=== PATIENT | male | born 1970 | race American Indian/Alaskan Native ===

== ENCOUNTER 2017-02-01 09:18 | Inpatient (IN) | payer MEDICAID ==
[2017-01-27 12:25] VITALS: BMI 33.0
[2017-02-01] MEDS ORDERED: Lactated Ringer's 1,000 ML IV ONE (14:35)
[2017-02-01] MEDS: ceFAZolin IV 2 gm in Dextrose 1 GM/50 ML BAG IVPB ONE ×2 (14:40→14:42)
[2017-02-01] MEDS ORDERED: Midazolam 2 MG/2 ML VIAL ONE (14:41)
[2017-02-01] MEDS ORDERED: Propofol 10 mg/ml Inj (20 ML) ONE (14:42)
[2017-02-01] MEDS ORDERED: Bupivacaine HCl 0.25% PF (10 ml) Inj ONE ×2 (15:09)
[2017-02-01] MEDS ORDERED: HYDROmorphone 0.5 mg/0.5 ml ISec IVP PRN (15:46)
[2017-02-01] MEDS ORDERED: HYDROmorphone 0.5 mg/0.5 ml ISec IVP ONE ×2 (16:12→16:55)
[2017-02-01] MEDS ORDERED: Sodium Chloride 0.9% 1,000 ML IV ONE (16:30)
--- NOTE | 2017-02-01 18:12 | OP ---
PROCEDURE DATE: 02/01/2017 PREOPERATIVE DIAGNOSIS: Large midline ventral hernia. POSTOPERATIVE DIAGNOSES: Large midline ventral hernia with multiple adhesions. PROCEDURE PERFORMED: Exploratory laparotomy, primary repair of midline ventral hernia with extensive lysis of adhesions. SURGEON: Lio Squires MD ANESTHESIA: General. ESTIMATED BLOOD LOSS: 30 mL. POSTOPERATIVE CONDITION: Stable. INDICATIONS FOR SURGERY: This is a 46-year-old male with a midline large ventral hernia, who now tin l undergo repair. GROSS FINDINGS: There are multiple adhesions to the hernia site and sac. The hernia sac contained o mentum, but underlying was both small bowel and large bowel. PROCEDURE: The patient taken to the operating room and placed in supine position. General anesthesi a administered and the abdomen was prepped and draped. A midline incision was made. Hernia sac was almost immediately entered. It was dissected free down to its base and the hernia sac was transected at the fascia, releasing all the contacts. There was both bowel and omentum within the hernia sac. This was dissected free and reduced. Extensive adhesions were taken down from the abdomen to clear the fascial edges. This included both small and large bowel, small serosal tears of both were repair ed with silk. A mesenteric blood vessel was repaired with Prolene. Once the fascial edge had been c ompletely cleansed of surrounding adhesions, a primary repair was accomplished using interrupted #1 N ovafil sutures. The wound was irrigated with saline, cleared carefully. There was a large tissue de fect. For this reason, the tissue flaps were raised and a greater than 30 cm adjacent tissue transfe r closure was performed with multiple layers of Vicryl, subcuticular Vicryl and ____ clips. The ziggy ent tolerated procedure well, returned to recovery room in stable condition. Lio Squires MD cc: [id number] TT: 02/01/2017 18:12:09 martin
[2017-02-01] MEDS: Oxycodone/Acetaminophen 5/325 mg Tab PO PRN (19:00)
[2017-02-02] MEDS: Sodium Chloride 0.45% 1,000 ML IV SCH ×3 (04:05→18:46)
[2017-02-02 07:41] LABS: BASO % 0.7 % (0.0-2.0); EOS # 0.4 K/uL (0.0-0.7); EOS % 5.6 % (0.0-4.0); HEMATOCRIT 36.5 % (35.0-51.0); LYMPH % 15.5 % (20.0-40.0); MEAN CELL VOLUME 88.4 fL (80.0-94.0); MEAN CORPUSCULAR HEMOGLOBIN 29.9 pg (27.0-31.0); MEAN CORPUSCULAR HGB CONC 33.8 g/dL (33.0-37.0); MEAN PLATELET VOLUME 8.2 fL (7.2-11.7); MONO # 0.7 K/uL (0.0-0.8); MONO % 10.2 % (0.0-10.0); NRBC % 0.1 % (0.0-2.0); RED CELL DISTRIBUTION WIDTH 14.2 % (11.5-14.5); WHITE BLOOD COUNT 6.5 K/uL (4.8-10.8)
[2017-02-02 08:09] LABS: CHLORIDE 97 mmol/L (98-107); SODIUM 137 mmol/L (132-148)
[2017-02-02 08:10] LABS: POTASSIUM 3.7 mmol/L (3.6-5.2)
[2017-02-02 08:12] LABS: ALB/GLOB RATIO 1.1 (1.0-2.1); ALKALINE PHOSPHATASE 55 U/L (38-126); AST/SGOT 148 U/L (17-59); BILIRUBIN,TOTAL 0.8 mg/dL (0.2-1.3); BLOOD UREA NITROGEN 8 mg/dL (9-20); CARBON DIOXIDE 28 mmol/L (22-30); GFR AFRICAN-AMERICAN > 60; TOTAL PROTEIN 7.4 g/dL (6.3-8.3)
[2017-02-02 08:13] LABS: ALT/SGPT 181 U/L (21-72); CALCIUM 8.5 mg/dl (8.6-10.4); GLUCOSE,RANDOM 143 mg/dL (75-110)
[2017-02-02] MEDS ORDERED: Pneumococcal 23-Valent Vaccine IM ONE (10:00)
[2017-02-02] MEDS: Enoxaparin 40 mg Syringe SC SCH (10:03)
--- NOTE | 2017-02-02 10:05 | CP.PCM.PN ---
Subjective - Date & Time of Evaluation Date of Evaluation: 02/02/17 Time of Evaluation: 08:00 - Subjective Subjective: Medicine consult note- Dr. Masterson's service Patient was seen and examined at bedside. Patient reports a history of diabetes , hypertension, hyperlipidemia, CAD, sleep apnea. Patient is s/p day#1 of ventral hernia repair. Tolerating pain, requesting advancement of diet. No events overnight, per nursing. Objective - Vital Signs/Intake and Output Vital Signs (last 24 hours): Temp Pulse Resp BP Pulse Ox 97.6 F 85 18 118/71 95 02/02/17 09:17 02/02/17 09:17 02/02/17 09:17 02/02/17 09:17 02/02/17 09:17 Intake and Output: 02/02/17 02/02/17 06:59 18:59 Intake Total 720 Output Total 360 Balance 360 - Medications Medications: Current Medications Docusate Sodium (Colace) 100 mg PO BID [facility] Last Admin: 02/02/17 10:01 Dose: 100 mg Enoxaparin Sodium (Lovenox) 40 mg SC DAILY [facility] Sodium Chloride (Sodium Chloride 0.45%) 1,000 mls @ 80 mls/hr IV .[id number] [facility] Last Admin: 02/02/17 04:05 Dose: 80 mls/hr Ketorolac Tromethamine (Toradol) 30 mg IVP Q6 PRN PRN Reason: pain8-10 Stop: 02/06/17 15:30 Last Admin: 02/02/17 10:02 Dose: 30 mg Ondansetron HCl (Zofran Inj) 4 mg IVP Q6 PRN PRN Reason: Nausea/Vomiting Oxycodone/Acetaminophen (Percocet 5/325 Mg Tab) 2 tab PO Q4H PRN PRN Reason: pain1-7 Stop: 02/04/17 15:30 Last Admin: 02/01/17 19:00 Dose: 2 tab Pantoprazole Sodium (Protonix Inj) 40 mg IVP DAILY [facility] Last Admin: 02/02/17 10:01 Dose: 40 mg - Labs Labs: 02/02/17 07:09 02/02/17 07:09 - Constitutional Appears: Non-toxic, No Acute Distress - Head Exam Head Exam: ATRAUMATIC, NORMAL INSPECTION, NORMOCEPHALIC - Eye Exam Pupil Exam: NORMAL ACCOMODATION, PERRL - ENT Exam ENT Exam: Mucous Membranes Moist - Respiratory Exam Respiratory Exam: Clear to Ausculation Bilateral, NORMAL BREATHING PATTERN. absent: Prolonged Expiratory Phase, Rales, Rhonchi, Wheezes - Cardiovascular Exam Cardiovascular Exam: REGULAR RHYTHM, +S1, +S2 - GI/Abdominal Exam GI & Abdominal Exam: Soft, Normal Bowel Sounds. absent: Tenderness, Diminished Bowel Sounds, Hernia, Hypoactive Bowel Sounds Additional comments: abdomen wrapped in binding, tender along midline - Extremities Exam Extremities Exam: Normal Capillary Refill, Normal Inspection - Neurological Exam Neurological Exam: Alert, Awake, Oriented x3 - Psychiatric Exam Psychiatric exam: Normal Affect, Normal Mood - Skin Skin Exam: Dry, Intact, Normal Color, Warm Assessment and Plan - Assessment and Plan (Free Text) Assessment: Ventral Hernia Repair Gen surgery- Dr. Squires s/p ventral hernia repair day #1 Continue clear liquid diet Toradol 30mg IVP Q6h PRN Colace 100mg PO BID Percocet 2 tab PO Q4h PRN Zofran 4mg IVP Q6h PRN IVF NS @ 80cc/hr Hypertension Continue home meds: Lisinopril 40mg PO Daily Metoprolol ER 25mg PO Daily Lasix 20mg PO Daily Diabetes Continue home meds: Metformin 500mg PO BID Prophylactic Measure Protonix 40mg IVP Daily SCDs Lovenox 40mg SC Daily
[2017-02-02] MEDS ORDERED: Albuterol HFA 90 mcg/actuation (8 g) IH PRN (10:32)
[2017-02-02 15:46] VITALS: RESP 20
[2017-02-03] MEDS: Oxycodone/Acetaminophen 5/325 mg Tab PO PRN ×2 (08:23→12:10)
[2017-02-03 09:02] VITALS: TEMP 98; O2SAT 94
[2017-02-03] MEDS ORDERED: Metoprolol Succinate 25 mg XL Tab PO SCH (10:00)
[2017-02-03] MEDS: Enoxaparin 40 mg Syringe SC SCH (10:00)
[2017-02-03 11:24] VITALS: BP 161/82; PULSE 96
== END 2017-02-03 12:30 | disposition home or self-care (01) | DRG 160 ==
LOC: C.SDS 09:18 → C.9S 15:29 → C.5T 19:25
PROVIDERS: ADMIT Surgery; ATTEND Surgery
PROC: 0WQF0ZZ Repair Abdominal Wall, Open Approach (ICD-10-PCS; principal; 2017-02-01 12:15)
DX: K43.9 Ventral hernia without obstruction or gangrene (principal); I10 Essential (primary) hypertension; G47.30 Sleep apnea, unspecified; K66.0 Peritoneal adhesions (postprocedural) (postinfection); I25.10 Atherosclerotic heart disease of native coronary artery without angina pectoris; E78.5 Hyperlipidemia, unspecified; E11.9 Type 2 diabetes mellitus without complications

== ENCOUNTER 2017-03-16 11:10 | Inpatient (IN) | payer MEDICAID ==
[2017-03-16 11:14] VITALS: BMI 31.9
[2017-03-16] MEDS ORDERED: Iohexol 240 (50 ml) PO ONE (11:30)
[2017-03-16] MEDS ORDERED: Iohexol 240 (50 ml) ONE (11:37)
[2017-03-16] MEDS ORDERED: Sodium Chloride 0.9% 1,000 ML ONE (12:04)
[2017-03-16] MEDS ORDERED: Sodium Chloride 0.9% 1,000 ML IV ONE (12:07)
[2017-03-16 12:13] LABS: BASO # 0.1 K/uL (0.0-0.2); EOS # 0.1 K/uL (0.0-0.7); EOS % 1.4 % (0.0-4.0); HEMOGLOBIN 12.7 g/dL (12.0-18.0); LYMPH # 1.2 K/uL (1.0-4.3); LYMPH % 19.1 % (20.0-40.0); MEAN CELL VOLUME 90.1 fL (80.0-94.0); MEAN CORPUSCULAR HEMOGLOBIN 30.5 pg (27.0-31.0); MEAN CORPUSCULAR HGB CONC 33.8 g/dL (33.0-37.0); MEAN PLATELET VOLUME 7.9 fL (7.2-11.7); MONO # 0.6 K/uL (0.0-0.8); MONO % 9.6 % (0.0-10.0); NEUT # 4.3 K/uL (1.8-7.0); NEUT % 68.9 % (50.0-75.0); RBC 4.17 Mil/uL (4.40-5.90); WHITE BLOOD COUNT 6.2 K/uL (4.8-10.8)
[2017-03-16 12:14] LABS: INR 1.1; PROTHROMBIN TIME 12.7 SECONDS (9.7-12.2)
--- NOTE | 2017-03-16 12:23 | C.PDOC ---
History Of Present Illness 47 yr old male presents to the ER s/p ventral hernia repair by Dr. Squires 1 month ago, patient states since then he has had increasing swelling, pain and drainage from the wound. Patient reports he was seen by his PMD for worsening symptoms who sent the patient to ED for further evaluation. Patient denies fever , chest pain, nausea, vomiting, dysuria, incontinence, weakness or numbness. Time Seen by Provider: 03/16/17 11:59 Chief Complaint (Nursing): Abnormal Skin Integrity History Per: Patient History/Exam Limitations: no limitations Onset/Duration Of Symptoms: Days (1 month ) Past Medical History Reviewed: Historical Data, Nursing Documentation, Vital Signs - Medical History PMH: Asthma (HOSPITALIZED-LAST TIME "A LONG TIME AGO"), Colonic Polyps, HTN, Peripheral Edema - [facility] Procedures REPAIR ABDOMINAL WALL, OPEN APPROACH (02/01/17) Family History: States: No Known Family Hx - Social History Hx Alcohol Use: Yes Hx Substance Use: No - Immunization History Hx Tetanus Toxoid Vaccination: No Hx Influenza Vaccination: Yes (2016) Hx Pneumococcal Vaccination: Yes (01/2017) Review Of Systems Except As Marked, All Systems Reviewed And Found Negative. Constitutional: Negative for: Fever Cardiovascular: Negative for: Chest Pain Gastrointestinal: Positive for: Other ((+) Ventral hernia repair with increasing swelling, pain and drainage. ). Negative for: Nausea, Vomiting Genitourinary: Negative for: Dysuria, Incontinence Neurological: Negative for: Weakness, Numbness Physical Exam - Physical Exam Appears: Non-toxic, No Acute Distress Skin: Warm, Dry, No Rash Head: Atraumatic, Normacephalic Oral Mucosa: Moist Chest: Symmetrical, No Tenderness Cardiovascular: Rhythm Regular, No Murmur Respiratory: Normal Breath Sounds, No Rales, No Rhonchi, No Wheezing Gastrointestinal/Abdominal: Soft, No Tenderness, No Guarding, No Rebound, Other ((+) 7cm wound above the umbilicus area, with serosanguinous drainage, mild erythema and tenderness.) Extremity: Normal ROM, No Swelling Neurological/Psych: Oriented x3, Normal Speech, Normal Motor ED Course And Treatment - Laboratory Results Result Diagrams: 03/16/17 12:00 03/16/17 12:00 - CT Scan/US CT - Abd & Pelvis Other Rad Studies (CT/US): Read By Radiologist, Radiology Report Reviewed CT/US Interpretation: EXAM: CT Abdomen and Pelvis With Intravenous Contrast. CLINICAL HISTORY: 47 years old, male; Pain; Abdominal pain; Epigastric; Additional info: Wound infection abdominal wall. TECHNIQUE: Axial computed tomography images of the abdomen and pelvis with intravenous contrast. This CT. exam was performed using one or more of the following dose reduction techniques: automated. exposure control, adjustment of the mA and/or kV according to patient size, and/or use of iterative. reconstruction technique. CONTRAST: 75 mL of visipaque administered intravenously. COMPARISON: No relevant prior studies available. FINDINGS: Lower thorax: No infiltrate at the lung bases. ABDOMEN: Liver: Fatty liver. Hepatic fatty sparing around the gallbladder fossa. Gallbladder and bile ducts: Nondistended gallbladder. No calcified stones. No ductal dilation. Pancreas: Unremarkable. No mass. No ductal dilation. Spleen: Unremarkable. No splenomegaly. Adrenals: Unremarkable. No mass. Kidneys and ureters: Unremarkable. No solid mass. No hydronephrosis. Stomach and bowel: There is no bowel obstruction or free intraperitoneal air. Appendix: Normal appendix. PELVIS: Bladder: Unremarkable. No mass. Reproductive: Unremarkable as visualized. ABDOMEN and PELVIS: Intraperitoneal space: Unremarkable. No free air. No significant fluid collection. Bones/joints: Degenerative change. No acute fracture. No dislocation. Soft tissues: Nonspecific subcutaneous fat stranding inferior to the umbilicus. Skin thickening. No. abscess. Vasculature: Unremarkable. No abdominal aortic aneurysm. Lymph nodes: Few subcentimeter lymph nodes in inguinal region bilaterally. IMPRESSION: Nonspecific subcutaneous fat stranding inferior to the umbilicus, possibly due to cellulitis. Skin. thickening. No abscess. Medical Decision Making Medical Decision Making: PLAN: * CT - Abd & Pelvis * CBC * CMP * Urinalysis * Benadryl IVP * Morphine IVP * Zofran IVP * Sodium Chloride IV The case was discussed with Dr. Squires who agrees to consult on the patient and requests for the patient to be admitted to the hospitalist. The case was discussed with Dr. Marcial (hospitalist oncall) who agrees to admit the patient to his service. Disposition - Disposition Disposition: HOSPITALIZED Disposition Time: 17:30 Condition: GOOD - Clinical Impression Clinical Impression: Cellulitis - PA / [employer] PL[employer]NER / Resident Statement MD/DO has reviewed & agrees with the documentation as recorded. - Scribe Statement The provider has reviewed the documentation as recorded by the Scribsultana Dowling All medical record entries made by the Flory were at my direction and personally dictated by me. I have reviewed the chart and agree that the record accurately reflects my personal performance of the history, physical exam, medical decision making, and the department course for this patient. I have also personally directed, reviewed, and agree with the discharge instructions and disposition.
[2017-03-16 12:27] LABS: AST/SGOT 127 U/L (17-59); GFR AFRICAN-AMERICAN > 60; GFR NON-AFRICAN AMERICAN > 60
[2017-03-16] MEDS ORDERED: Morphine 4 MG/ML VIAL ONE (12:27)
[2017-03-16 12:28] LABS: ALT/SGPT 217 U/L (21-72); BLOOD UREA NITROGEN 9 mg/dL (9-20); CALCIUM 9.5 mg/dl (8.6-10.4)
[2017-03-16 13:51] LABS: URINE BILIRUBIN NEGATIVE (NEGATIVE); URINE BLOOD NEGATIVE (NEGATIVE); URINE CLARITY Clear (Clear); URINE COLOR Straw (YELLOW); URINE GLUCOSE (UA) NORMAL (Normal); URINE LEUKOCYTE ESTERASE NEG Leu/uL (Negative); URINE NITRATE NEGATIVE (NEGATIVE); URINE PROTEIN NEGATIVE (NEGATIVE); URINE UROBILINOGEN NORMAL mg/dL (0.2-1.0)
[2017-03-16] MEDS ORDERED: DiphenhydrAMINE 50 mg/ml Inj IVP STA (14:19)
[2017-03-16] MEDS ORDERED: Iodixanol 320 MG/ML 100 ML BOTTLE IV ONE (14:29)
[2017-03-16] MEDS ORDERED: DiphenhydrAMINE 50 mg/ml Inj ONE (14:32)
[2017-03-16] MEDS ORDERED: Piperacillin/Tazobact 3.375 gm 100 ML IV STA (16:48)
[2017-03-16] MEDS ORDERED: Vancomycin 1 GM 1 GM/250 ML BAG IV SCH (17:00)
[2017-03-16] MEDS ORDERED: Vancomycin 1 GM 1 GM/250 ML BAG IVPB ONE (17:20)
[2017-03-16] MEDS ORDERED: Piperacillin/Tazobact 3.375 gm 100 ML IVPB ONE (17:21)
[2017-03-16] MEDS ORDERED: Albuterol HFA 90 mcg/actuation (8 g) IH PRN ×2 (20:28→21:30)
[2017-03-16] MEDS ORDERED: Oxycodone/Acetaminophen 5/325 mg Tab ONE (20:37)
[2017-03-16] MEDS: Oxycodone/Acetaminophen 5/325 mg Tab PO PRN (20:39)
[2017-03-16] MEDS ORDERED: Potassium Chloride 20 mEq ER Tab PO STA (22:16)
[2017-03-17 07:27] LABS: BASO % 0.5 % (0.0-2.0); EOS # 0.1 K/uL (0.0-0.7); EOS % 2.8 % (0.0-4.0); HEMOGLOBIN 13.2 g/dL (12.0-18.0); LYMPH # 0.7 K/uL (1.0-4.3); LYMPH % 13.2 % (20.0-40.0); MEAN CELL VOLUME 90.7 fL (80.0-94.0); MEAN CORPUSCULAR HEMOGLOBIN 30.5 pg (27.0-31.0); MEAN CORPUSCULAR HGB CONC 33.7 g/dL (33.0-37.0); MEAN PLATELET VOLUME 8.3 fL (7.2-11.7); MONO # 0.3 K/uL (0.0-0.8); MONO % 5.9 % (0.0-10.0); NEUT # 4.2 K/uL (1.8-7.0); NEUT % 77.6 % (50.0-75.0); NRBC % 0.1 % (0.0-2.0); RBC 4.31 Mil/uL (4.40-5.90); RED CELL DISTRIBUTION WIDTH 15.1 % (11.5-14.5); WHITE BLOOD COUNT 5.4 K/uL (4.8-10.8)
[2017-03-17 07:34] LABS: INR 1.1; PROTHROMBIN TIME 12.1 SECONDS (9.7-12.2)
--- NOTE | 2017-03-17 07:49 | CP.PCM.PN ---
Subjective - Date & Time of Evaluation Date of Evaluation: 03/17/17 Time of Evaluation: 07:30 - Subjective Subjective: CC: Abdominal pain x 1 week HPI: This 47 year old male with PMHx Asthma, Colonic Polyps, HTN, Peripheral Edema - presents to the ED s/p ventral hernia repair on 02/01/[address] Squires. Patient is c/o increasing swelling, pain and drainage from the wound. He reports having his angel removed in office roughly 2 weeks after the procedure and feeling well at that time. Roughly 1 week ago, he reports to have developed leakage of fluid from the hernia site, progressing to what he believes is "puss." He admits that the redness and tenderness at the site of his incision is also worst over the past week. Patient reports he was seen by his PMD (Dr. Masterson) for worsening symptoms, who sent the patient to ED for further evaluation. Patient denies f/c, change in vision, chest pain, SOB, nausea, vomiting, dysuria, incontinence, weakness or numbness. PMD: Dr. Masterson PMHx: Asthma (previously hospitalized), Colonic Polyps, HTN, Peripheral Edema PSHx: Ventral Hernia repair, Fracture of L arm with hardware placed. Meds: See EMR FamHx: unknown SocHx: 5cig/day for many years, ETOH social, denies drug use. On disability from work. Objective - Vital Signs/Intake and Output Vital Signs (last 24 hours): Temp Pulse Resp BP Pulse Ox 97.3 F L 85 20 151/88 H 96 03/16/17 23:45 03/16/17 23:45 03/16/17 23:45 03/16/17 23:45 03/16/17 23:45 - Medications Medications: Current Medications Albuterol (Ventolin Hfa 90 Mcg/Actuation (8 G)) 2 puff IH RQ4 PRN PRN Reason: Shortness of Breath Aspirin (Ecotrin) 81 mg PO DAILY [facility] Clopidogrel Bisulfate (Plavix) 75 mg PO DAILY [facility] Enoxaparin Sodium (Lovenox) 40 mg SC DAILY [facility] Furosemide (Lasix) 20 mg PO DAILY [facility] Vancomycin HCl (Vancomycin 1gm In Normal Saline Addvantage) 1 gm in 250 mls @ 166.667 mls/hr IV STAT [facility] Last Admin: 03/16/17 18:00 Dose: 166.667 mls/hr Lisinopril (Zestril) 40 mg PO DAILY [facility] Nitroglycerin (Nitrostat Sl Tab) 0.4 mg SL PRN PRN PRN Reason: Other Oxycodone/Acetaminophen (Percocet 5/325 Mg Tab) 1 tab PO Q4H PRN PRN Reason: Pain, severe (8-10) Stop: 03/19/17 20:28 Last Admin: 03/16/17 20:39 Dose: 1 tab - Labs Labs: 03/17/17 07:14 PT 12.1 SECONDS (9.7-12.2) 03/17/17 07:14 INR 1.1 03/17/17 07:14 APTT 38 SECONDS (21-34) H D 03/17/17 07:14 - Additional Findings Additional findings: - Constitutional Appears: Non-toxic, In Acute Distress (due to pain) - Head Exam Head Exam: ATRAUMATIC, NORMAL INSPECTION, NORMOCEPHALIC - Eye Exam Pupil Exam: NORMAL ACCOMODATION, PERRL - ENT Exam ENT Exam: Mucous Membranes Moist - Respiratory Exam Respiratory Exam: Clear to Ausculation Bilateral, NORMAL BREATHING PATTERN. absent: Prolonged Expiratory Phase, Rales, Rhonchi, Wheezes - Cardiovascular Exam Cardiovascular Exam: REGULAR RHYTHM, +S1, +S2 - GI/Abdominal Exam GI & Abdominal Exam: Soft, Normal Bowel Sounds, Tenderness. absent: Diminished Bowel Sounds, Hernia, Hypoactive Bowel Sounds Additional comments: (+) 7cm wound above the umbilicus area, with serosanguinous drainage, mild erythema and tenderness. - Extremities Exam Extremities Exam: Normal Capillary Refill, Normal Inspection - Neurological Exam Neurological Exam: Alert, Awake, Oriented x3 - Psychiatric Exam Psychiatric exam: Normal Affect, Normal Mood - Skin Skin Exam: Dry, Intact, Normal Color, Warm Assessment and Plan - Assessment and Plan (Free Text) Assessment: Cellulitis at Ventral Hernia Repair Site -Ventral hernia repair performed 02/01/[address] Squires -Percocet 5/325 mg PO Q4H -Cefazolin 1Gm IVPB Q8H -negative Urine cult -wound culture (+) staff. -Consult Surgery, Dr. Squires, help appreciated. -Consult ID, Dr. Schuster, help appreciated. Asthma -not in acute exacerbation, however previously hospitalized -albuterol PRN HTN -Nitroglycerin 0.4mg SL PRN -Lisinopril 40mg PO qd -Held Furosemide 20mg PO qd -Held ASA 81mg PO qd CAD -Held Plavix 75mg PO qd -f/u lipid panel -f/u A1c -f/u TSH + fee T4 Diabetes Hold Metformin 500mg PO BID Proph -SCD -Regular diet -Protonix 40mg IVP qd -Held Lovenox 40mg SC daily
[2017-03-17 07:59] LABS: ALBUMIN 3.7 g/dL (3.5-5.0)
[2017-03-17 08:02] LABS: AST/SGOT 88 U/L (17-59); GFR AFRICAN-AMERICAN > 60; GFR NON-AFRICAN AMERICAN > 60
[2017-03-17 08:03] LABS: ALT/SGPT 163 U/L (21-72); BLOOD UREA NITROGEN 7 mg/dL (9-20); CALCIUM 9.4 mg/dl (8.6-10.4)
--- NOTE | 2017-03-17 09:43 | CT ---
PROCEDURE: CT Abdomen and Pelvis with contrast HISTORY: wound infection abdominal wall COMPARISON: None. TECHNIQUE: Contrast dose: 100 mL Visipaque 320 Radiation dose: Total exam DLP = 764.81 mGy-cm. This CT exam was performed using one or more of the following dose reduction techniques: Automated exposure control, adjustment of the mA and/or kV according to patient size, and/or use of iterative reconstruction technique. FINDINGS: LOWER THORAX: Unremarkable. LIVER: Normal size and contour. Diffusely diminished attenuation consistent with fatty infiltration. No mass. No biliary ductal dilatation. GALLBLADDER AND BILE DUCTS: Partially contracted. No calcified stones identified. No mural thickening appreciated. PANCREAS: Unremarkable. No gross lesion or ductal dilatation. SPLEEN: Unremarkable. ADRENALS: Unremarkable. No mass. KIDNEYS AND URETERS: Unremarkable. No hydronephrosis. No solid mass. No renal calculus identified. VASCULATURE: Unremarkable. No aortic aneurysm. BOWEL: Unremarkable. No obstruction. No gross mural thickening. APPENDIX: Normal appendix. PERITONEUM: About the umbilical ligament there is inflammation manifested as streaky increased density in the subcutaneous fat. There is thickening of the skin of the emboli kiss and immediately superior midline skin. This inflammation in the subcutaneous soft tissues about the emboli kiss extends through and posterior to the linea elbow and posterior rectus sheaths. There is a small amount of inflammation seen within the anterior intraperitoneal fat adjacent to the umbilicus. There is no definite abscess identified within the subcutaneous soft tissues about the umbilicus. LYMPH NODES: Unremarkable. No enlarged lymph nodes. BLADDER: Unremarkable. REPRODUCTIVE: Normal prostate BONES: No acute fracture. OTHER FINDINGS: None. IMPRESSION: Cellulitis about the umbilicus with involvement of the subcutaneous fat about the emboli kiss. This infectious process extends through the linea L5 and medial rectus sheaths to involve the intraperitoneal fat anteriorly, adjacent to the anterior abdominal wall. Again, no evidence of abscess. These findings were discussed with SALOMON Nath by telephone at 9:30 a.m. on 03/17/2017.
[2017-03-17 11:33] LABS: MAGNESIUM 1.7 mg/dL (1.6-2.3)
[2017-03-17] MEDS: ceFAZolin 1 GM in Sodium Chloride 0.9% 100 ML IVPB SCH ×2 (11:45→18:02)
[2017-03-17] MEDS: Enoxaparin 40 mg Syringe SC SCH (11:52)
[2017-03-17] MEDS ORDERED: Lactated Ringer's 1,000 ML IV ONE (15:25)
[2017-03-17] MEDS ORDERED: Propofol 10 mg/ml Inj (20 ML) ONE ×2 (15:33→15:54)
[2017-03-17] MEDS ORDERED: Midazolam 2 MG/2 ML VIAL ONE (15:33)
[2017-03-17] MEDS ORDERED: Albuterol-Ipratrop 3 mg / 0.5 (3 ml) UD INH STA (16:22)
[2017-03-17] MEDS ORDERED: HYDROmorphone 0.5 mg/0.5 ml ISec IVP PRN (16:23)
[2017-03-17] MEDS: Oxycodone/Acetaminophen 5/325 mg Tab PO PRN ×2 (17:46→23:48)
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
[2017-03-17] MEDS ORDERED: Vancomycin 1 gm/NS 200 ml 1 GM/200 ML BAG IVPB SCH (19:45)
[2017-03-17] MEDS: Vancomycin 1 gm/NS 200 ml 1 GM/200 ML BAG IVPB SCH (21:34)
[2017-03-18] MEDS: ceFAZolin 1 GM in Sodium Chloride 0.9% 100 ML IVPB SCH ×3 (03:35→19:10)
[2017-03-18 07:37] LABS: BASO # 0.1 K/uL (0.0-0.2); BASO % 0.9 % (0.0-2.0); HEMOGLOBIN 12.4 g/dL (12.0-18.0); LYMPH # 0.7 K/uL (1.0-4.3); LYMPH % 6.1 % (20.0-40.0); MEAN CORPUSCULAR HEMOGLOBIN 30.3 pg (27.0-31.0); MEAN CORPUSCULAR HGB CONC 33.7 g/dL (33.0-37.0); MEAN PLATELET VOLUME 8.3 fL (7.2-11.7); MONO # 0.3 K/uL (0.0-0.8); MONO % 2.9 % (0.0-10.0); NEUT # 9.7 K/uL (1.8-7.0); NEUT % 90.1 % (50.0-75.0); PLATELET COUNT 347 K/uL (130-400); RBC 4.08 Mil/uL (4.40-5.90); RED CELL DISTRIBUTION WIDTH 15.2 % (11.5-14.5); WHITE BLOOD COUNT 10.8 K/uL (4.8-10.8)
[2017-03-18 07:42] LABS: ALBUMIN 3.7 g/dL (3.5-5.0)
[2017-03-18 07:45] LABS: ALT/SGPT 142 U/L (21-72); AST/SGOT 68 U/L (17-59); BLOOD UREA NITROGEN 9 mg/dL (9-20); GFR AFRICAN-AMERICAN > 60; GFR NON-AFRICAN AMERICAN > 60
[2017-03-18 07:46] LABS: CALCIUM 9.9 mg/dl (8.6-10.4); HDL CHOLESTEROL 34 mg/dL (30-70); MAGNESIUM 1.9 mg/dL (1.6-2.3)
[2017-03-18 07:57] LABS: LDL CHOLESTEROL 118 mg/dL (0-129)
[2017-03-18 08:39] LABS: LYMPHOCYTE 6 % (20-40); MONOCYTE 5 % (0-10); NEUTROPHIL 89 % (50-75); PLATELET ESTIMATE NORMAL (NORMAL); TOTAL CELLS COUNTED 100
[2017-03-18] MEDS: Oxycodone/Acetaminophen 5/325 mg Tab PO PRN ×2 (09:05→18:05)
--- NOTE | 2017-03-18 11:06 | CP.PCM.PN ---
Subjective - Date & Time of Evaluation Date of Evaluation: 03/18/17 Time of Evaluation: 07:20 - Subjective Subjective: PGY2 Medicine Note - Dr. Masterson's Service Patient seen and examined at bedside. No acute overnight events per nursing. Patient is POD #1 for I&D of abdominal wall abscess with Dr. Squires, s/p ventral hernia repair on 02/01/17. Admits to mild abdominal pain, well controlled. Denies f/c, chest pain, SOB, n/v, d/c, LE edema, or any additional complaints. Objective - Vital Signs/Intake and Output Vital Signs (last 24 hours): Temp Pulse Resp BP Pulse Ox 97.7 F 84 20 161/84 H 96 03/18/17 08:35 03/18/17 08:35 03/18/17 08:35 03/18/17 08:35 03/18/17 08:35 - Medications Medications: Current Medications Albuterol (Ventolin Hfa 90 Mcg/Actuation (8 G)) 2 puff IH RQ4 PRN PRN Reason: Shortness of Breath Aspirin (Ecotrin) 81 mg PO DAILY [facility] Last Admin: 03/17/17 11:51 Dose: Not Given Clopidogrel Bisulfate (Plavix) 75 mg PO DAILY [facility] Last Admin: 03/17/17 11:52 Dose: Not Given Enoxaparin Sodium (Lovenox) 40 mg SC DAILY [facility] Last Admin: 03/17/17 11:52 Dose: Not Given Furosemide (Lasix) 20 mg PO DAILY [facility] Last Admin: 03/17/17 11:51 Dose: Not Given Cefazolin Sodium 1 gm/ Sodium (Chloride) 100 mls @ 100 mls/hr IVPB Q8H [facility] Last Admin: 03/18/17 10:56 Dose: 100 mls/hr Vancomycin/Sodium Chloride (Vancocin) 1 gm in 200 mls @ 166.7 mls/hr IVPB Q24H [facility] Stop: 03/22/17 22:01 Last Admin: 03/17/17 21:34 Dose: 166.7 mls/hr Lisinopril (Zestril) 40 mg PO DAILY [facility] Last Admin: 03/18/17 10:56 Dose: 40 mg Nitroglycerin (Nitrostat Sl Tab) 0.4 mg SL PRN PRN PRN Reason: Other Oxycodone/Acetaminophen (Percocet 5/325 Mg Tab) 1 tab PO Q4H PRN PRN Reason: Pain, severe (8-10) Stop: 03/19/17 20:28 Last Admin: 03/18/17 09:05 Dose: 1 tab - Labs Labs: 03/18/17 07:03 03/18/17 07:03 PT 12.1 SECONDS (9.7-12.2) 03/17/17 07:14 INR 1.1 03/17/17 07:14 APTT 38 SECONDS (21-34) H D 03/17/17 07:14 - Additional Findings Additional findings: - Constitutional Appears: Non-toxic, In Acute Distress (due to pain) - Head Exam Head Exam: ATRAUMATIC, NORMAL INSPECTION, NORMOCEPHALIC - Eye Exam Pupil Exam: NORMAL ACCOMODATION, PERRL - ENT Exam ENT Exam: Mucous Membranes Moist - Respiratory Exam Respiratory Exam: Clear to Ausculation Bilateral, NORMAL BREATHING PATTERN. absent: Prolonged Expiratory Phase, Rales, Rhonchi, Wheezes - Cardiovascular Exam Cardiovascular Exam: REGULAR RHYTHM, +S1, +S2 - GI/Abdominal Exam GI & Abdominal Exam: Soft, Normal Bowel Sounds, Tenderness (improving). absent : Diminished Bowel Sounds, Hernia, Hypoactive Bowel Sounds Additional comments: current: bandages in place, CDI prior: (+) 7cm wound above the umbilicus area, with serosanguinous drainage, mild erythema and tenderness. - Extremities Exam Extremities Exam: Normal Capillary Refill, Normal Inspection - Neurological Exam Neurological Exam: Alert, Awake, Oriented x3 - Psychiatric Exam Psychiatric exam: Normal Affect, Normal Mood - Skin Skin Exam: Dry, Intact, Normal Color, Warm Assessment and Plan - Assessment and Plan (Free Text) Assessment: Cellulitis at Ventral Hernia Repair Site 03/18: POD #1 for I&D of abdominal wall abscess with Dr. Squires, s/p ventral hernia repair on 02/01/17 -Ventral hernia repair performed 02/01/[address] Squires -Percocet 5/325 mg PO Q4H -Cefazolin 1Gm IVPB Q8H -negative Urine cult -wound culture (+) staff. -Consult Surgery, Dr. Squires, help appreciated. -Consult ID, Dr. Schuster, help appreciated. Asthma -not in acute exacerbation, however previously hospitalized -albuterol PRN HTN -Nitroglycerin 0.4mg SL PRN -Lisinopril 40mg PO qd -Held Furosemide 20mg PO qd -Held ASA 81mg PO qd CAD -Held Plavix 75mg PO qd -lipid panel WNL -A1c 7.1 -TSH + fee T4 WNL Diabetes Hold Metformin 500mg PO BID until 03/19 (IV contrast given 03/17). A1c 7.1 Proph -SCD -Regular diet -Protonix 40mg IVP qd -Held Lovenox 40mg SC daily
[2017-03-18] MEDS ORDERED: Bupivacaine HCl 0.25% PF (10 ml) Inj ONE (12:55)
[2017-03-18] MEDS ORDERED: Lactated Ringer's 1,000 ML IV ONE (14:00)
[2017-03-18] MEDS ORDERED: Midazolam 2 MG/2 ML VIAL ONE (14:00)
[2017-03-18] MEDS ORDERED: Succinylcholine Chloride 20 mg/ml Syr (5 ml) IV ONE (14:00)
[2017-03-18] MEDS ORDERED: Propofol 10 mg/ml Inj (20 ML) ONE (14:00)
[2017-03-18] MEDS ORDERED: Rocuronium 10 mg/ml (5 ml) ONE (14:00)
[2017-03-18] MEDS ORDERED: Neostigmine Methylsulfate 3mg/3ml Syringe IV ONE (14:25)
[2017-03-18] MEDS ORDERED: HYDROmorphone 0.5 mg/0.5 ml ISec IVP PRN (14:55)
[2017-03-18] MEDS ORDERED: Lactated Ringer's 1,000 ML IV SCH (15:00)
[2017-03-18 17:34] VITALS: RESP 20
[2017-03-18] MEDS: Vancomycin 1 gm/NS 200 ml 1 GM/200 ML BAG IVPB SCH (21:21)
[2017-03-19] MEDS: ceFAZolin 1 GM in Sodium Chloride 0.9% 100 ML IVPB SCH ×3 (03:36→20:08)
[2017-03-19] MEDS: Oxycodone/Acetaminophen 5/325 mg Tab PO PRN ×4 (04:21→18:50)
[2017-03-19 08:06] LABS: BASO # 0.1 K/uL (0.0-0.2); BASO % 0.6 % (0.0-2.0); EOS # 0.3 K/uL (0.0-0.7); EOS % 2.6 % (0.0-4.0); HEMOGLOBIN 11.9 g/dL (12.0-18.0); LYMPH # 1.7 K/uL (1.0-4.3); LYMPH % 17.4 % (20.0-40.0); MEAN CELL VOLUME 90.6 fL (80.0-94.0); MEAN CORPUSCULAR HEMOGLOBIN 30.3 pg (27.0-31.0); MEAN CORPUSCULAR HGB CONC 33.4 g/dL (33.0-37.0); MEAN PLATELET VOLUME 8.2 fL (7.2-11.7); MONO # 0.5 K/uL (0.0-0.8); MONO % 5.6 % (0.0-10.0); NEUT # 7.2 K/uL (1.8-7.0); NEUT % 73.8 % (50.0-75.0); RBC 3.93 Mil/uL (4.40-5.90); RED CELL DISTRIBUTION WIDTH 15.3 % (11.5-14.5); WHITE BLOOD COUNT 9.8 K/uL (4.8-10.8)
[2017-03-19 08:21] LABS: ALBUMIN 3.5 g/dL (3.5-5.0)
[2017-03-19 08:24] LABS: AST/SGOT 132 U/L (17-59); BLOOD UREA NITROGEN 12 mg/dL (9-20); GFR AFRICAN-AMERICAN > 60; GFR NON-AFRICAN AMERICAN > 60
[2017-03-19 08:25] LABS: ALT/SGPT 156 U/L (21-72); MAGNESIUM 1.8 mg/dL (1.6-2.3)
[2017-03-19] MEDS ORDERED: Benzocaine/Menthol (Cepacol) Lozenge MT PRN (12:29)
--- NOTE | 2017-03-19 15:47 | CP.PCM.PN ---
Subjective - Date & Time of Evaluation Date of Evaluation: 03/19/17 Time of Evaluation: 09:45 - Subjective Subjective: PGY2 Medicine Note- Dr. Masterson's service Patient seen and examined. Patient states he feels well but has complaint of sore throat since his surgery. Patient also requesting to restart his home medication Advair. Objective - Vital Signs/Intake and Output Vital Signs (last 24 hours): Temp Pulse Resp BP Pulse Ox 98.1 F 92 H 20 132/74 97 03/18/17 23:20 03/18/17 23:20 03/18/17 23:20 03/18/17 23:20 03/18/17 23:20 - Medications Medications: Current Medications Albuterol (Ventolin Hfa 90 Mcg/Actuation (8 G)) 2 puff IH RQ4 PRN PRN Reason: Shortness of Breath Aspirin (Ecotrin) 81 mg PO DAILY [facility] Last Admin: 03/17/17 11:51 Dose: Not Given Benzocaine/Menthol (Cepacol Sore Throat) 1 selena MT Q3H PRN PRN Reason: Sore Throat Last Admin: 03/19/17 14:23 Dose: 1 selena Clopidogrel Bisulfate (Plavix) 75 mg PO DAILY [facility] Last Admin: 03/17/17 11:52 Dose: Not Given Docusate Sodium (Colace) 100 mg PO BID [facility]PLACED BY [facility] Enoxaparin Sodium (Lovenox) 40 mg SC DAILY [facility] Last Admin: 03/17/17 11:52 Dose: Not Given Furosemide (Lasix) 20 mg PO DAILY [facility] Last Admin: 03/17/17 11:51 Dose: Not Given Cefazolin Sodium 1 gm/ Sodium (Chloride) 100 mls @ 100 mls/hr IVPB Q8H [facility]PL[facility] Last Admin: 03/19/17 11:14 Dose: 100 mls/hr Vancomycin/Sodium Chloride (Vancocin) 1 gm in 200 mls @ 166.7 mls/hr IVPB Q24H [facility]PL[facility] Stop: 03/22/17 22:01 Last Admin: 03/18/17 21:21 Dose: 166.7 mls/hr Lactated Ringer's (Lactated Ringer's) 1,000 mls @ 150 mls/hr IV .Q6H40M REPLACED BY [facility] Lisinopril (Zestril) 40 mg PO DAILY [facility] Last Admin: 03/19/17 09:04 Dose: 40 mg Nitroglycerin (Nitrostat Sl Tab) 0.4 mg SL PRN PRN PRN Reason: Other Oxycodone/Acetaminophen (Percocet 5/325 Mg Tab) 1 tab PO Q4H PRN PRN Reason: Pain, severe (8-10) Stop: 03/19/17 20:28 Last Admin: 03/19/17 13:30 Dose: 1 tab Fluticasone/Salmeterol (Advair Diskus 250/50) 1 puff INH RQ12 ADI - Labs Labs: 03/19/17 07:54 03/19/17 07:54 PT 12.1 SECONDS (9.7-12.2) 03/17/17 07:14 INR 1.1 03/17/17 07:14 APTT 38 SECONDS (21-34) H D 03/17/17 07:14 - Constitutional Appears: Non-toxic, No Acute Distress - Head Exam Head Exam: ATRAUMATIC, NORMOCEPHALIC - Eye Exam Eye Exam: EOMI (right eye) - ENT Exam ENT Exam: Mucous Membranes Moist - Respiratory Exam Respiratory Exam: Decreased Breath Sounds, Clear to Ausculation Bilateral. absent: Wheezes - Cardiovascular Exam Cardiovascular Exam: +S1, +S2 - GI/Abdominal Exam GI & Abdominal Exam: Soft, Tenderness (around surgical site), Normal Bowel Sounds Additional comments: surgical site dressed with clean abdominal pads - Extremities Exam Extremities Exam: Normal Inspection. absent: Pedal Edema - Neurological Exam Neurological Exam: Alert, Awake - Psychiatric Exam Psychiatric exam: Normal Affect - Skin Skin Exam: Warm Assessment and Plan - Assessment and Plan (Free Text) Assessment: Cellulitis at Ventral Hernia Repair Site 03/19: POD #2 I&D abdominal wall abscess 03/18: POD #1 for I&D of abdominal wall abscess with Dr. Squires, s/p ventral hernia repair on 02/01/17 -Ventral hernia repair performed 02/01/[address] Squires -Percocet 5/325 mg PO Q4H -Cefazolin 1Gm IVPB Q8H -negative Urine cult -Pathology: fragments fibroadipose tissue with acute and chronic inflammation, fat necrosis and fibrosis -wound culture (+) s. aureus -Consult Surgery, Dr. Squires, help appreciated. -Consult ID, Dr. Schuster, help appreciated. CT Abdomen: cellulitis about the umbilicus with involvement of the subcutaneous fat about the emboli Asthma -not in acute exacerbation, however previously hospitalized -albuterol PRN, home med advair HTN -Nitroglycerin 0.4mg SL PRN -Lisinopril 40mg PO qd -Held Furosemide 20mg PO qd -Held ASA 81mg PO qd CAD -Plavix 75mg PO qd -lipid panel WNL -A1c 7.1 -TSH + fee T4 WNL Diabetes restart metformin 500mg BID 03/20/17 A1c 7.1 Prophylactic measure -SCD -Regular diet -pepcid 20mg daily -Lovenox 40mg SC daily All management per Dr. Masterson
--- NOTE | 2017-03-19 16:44 | CP.PCM.PN ---
Subjective - Date & Time of Evaluation Date of Evaluation: 03/19/17 Time of Evaluation: 07:00 - Subjective Subjective: wound + MSSA clean s/p debridement possible d/c in am on keflex Objective - Vital Signs/Intake and Output Vital Signs (last 24 hours): Temp Pulse Resp BP Pulse Ox 98.1 F 92 H 20 132/74 97 03/18/17 23:20 03/18/17 23:20 03/18/17 23:20 03/18/17 23:20 03/18/17 23:20 Intake and Output: 03/19/17 03/19/17 06:59 18:59 Intake Total 300 Balance 300 - Medications Medications: Current Medications Albuterol (Ventolin Hfa 90 Mcg/Actuation (8 G)) 2 puff IH RQ4 PRN PRN Reason: Shortness of Breath Aspirin (Ecotrin) 81 mg PO DAILY [facility] Last Admin: 03/17/17 11:51 Dose: Not Given Benzocaine/Menthol (Cepacol Sore Throat) 1 selena MT Q3H PRN PRN Reason: Sore Throat Last Admin: 03/19/17 14:23 Dose: 1 selena Clopidogrel Bisulfate (Plavix) 75 mg PO DAILY [facility] Last Admin: 03/17/17 11:52 Dose: Not Given Docusate Sodium (Colace) 100 mg PO BID [facility] Enoxaparin Sodium (Lovenox) 40 mg SC DAILY [facility] Last Admin: 03/17/17 11:52 Dose: Not Given Famotidine (Pepcid) 20 mg PO DAILY [facility] Furosemide (Lasix) 20 mg PO DAILY [facility] Last Admin: 03/17/17 11:51 Dose: Not Given Cefazolin Sodium 1 gm/ Sodium (Chloride) 100 mls @ 100 mls/hr IVPB Q8H [facility] Last Admin: 03/19/17 11:14 Dose: 100 mls/hr Vancomycin/Sodium Chloride (Vancocin) 1 gm in 200 mls @ 166.7 mls/hr IVPB Q24H [facility] Stop: 03/22/17 22:01 Last Admin: 03/18/17 21:21 Dose: 166.7 mls/hr Lactated Ringer's (Lactated Ringer's) 1,000 mls @ 150 mls/hr IV .Q6H40M [facility] Lisinopril (Zestril) 40 mg PO DAILY [facility] Last Admin: 03/19/17 09:04 Dose: 40 mg Metformin HCl (Glucophage) 500 mg PO BID [facility] Nitroglycerin (Nitrostat Sl Tab) 0.4 mg SL PRN PRN PRN Reason: Other Oxycodone/Acetaminophen (Percocet 5/325 Mg Tab) 1 tab PO Q4H PRN PRN Reason: Pain, severe (8-10) Stop: 03/19/17 20:28 Last Admin: 03/19/17 13:30 Dose: 1 tab Fluticasone/Salmeterol (Advair Diskus 250/50) 1 puff INH RQ12 [facility] - Labs Labs: 03/19/17 07:54 03/19/17 07:54 PT 12.1 SECONDS (9.7-12.2) 03/17/17 07:14 INR 1.1 03/17/17 07:14 APTT 38 SECONDS (21-34) H D 03/17/17 07:14 - Constitutional Appears: Non-toxic - Head Exam Head Exam: NORMAL INSPECTION - Eye Exam Eye Exam: PERRL. absent: Scleral icterus - ENT Exam ENT Exam: Mucous Membranes Dry, Normal External Ear Exam - Neck Exam Neck Exam: absent: Lymphadenopathy - Respiratory Exam Respiratory Exam: Decreased Breath Sounds, Clear to Ausculation Bilateral - Cardiovascular Exam Cardiovascular Exam: REGULAR RHYTHM - GI/Abdominal Exam GI & Abdominal Exam: Distended, Soft Assessment and Plan - Assessment and Plan (Free Text) Plan: wound infection mssa improving
[2017-03-19] MEDS: Fluticasone-Salmeterol 250-50mcg Diskus INH SCH (20:33)
[2017-03-20] MEDS: ceFAZolin 1 GM in Sodium Chloride 0.9% 100 ML IVPB SCH ×2 (03:20→13:47)
[2017-03-20 08:08] VITALS: PULSE 86; TEMP 97.5; O2SAT 96
[2017-03-20] MEDS: Fluticasone-Salmeterol 250-50mcg Diskus INH SCH (08:35)
[2017-03-20 09:08] LABS: BASO # 0.1 K/uL (0.0-0.2); EOS # 0.4 K/uL (0.0-0.7); EOS % 5.5 % (0.0-4.0); HEMOGLOBIN 13.2 g/dL (12.0-18.0); LYMPH # 1.4 K/uL (1.0-4.3); MEAN CELL VOLUME 91.4 fL (80.0-94.0); MEAN CORPUSCULAR HEMOGLOBIN 29.7 pg (27.0-31.0); MEAN CORPUSCULAR HGB CONC 32.5 g/dL (33.0-37.0); MEAN PLATELET VOLUME 8.1 fL (7.2-11.7); MONO # 0.8 K/uL (0.0-0.8); MONO % 10.5 % (0.0-10.0); NEUT # 4.6 K/uL (1.8-7.0); RBC 4.44 Mil/uL (4.40-5.90); RED CELL DISTRIBUTION WIDTH 15.3 % (11.5-14.5); WHITE BLOOD COUNT 7.3 K/uL (4.8-10.8)
[2017-03-20 09:18] LABS: ALBUMIN 4.3 g/dL (3.5-5.0)
[2017-03-20 09:21] LABS: ALB/GLOB RATIO 1.1 (1.0-2.1); ALT/SGPT 204 U/L (21-72); AST/SGOT 175 U/L (17-59); BLOOD UREA NITROGEN 10 mg/dL (9-20); CALCIUM 9.7 mg/dl (8.6-10.4); GFR AFRICAN-AMERICAN > 60; GFR NON-AFRICAN AMERICAN > 60
[2017-03-20] MEDS: Enoxaparin 40 mg Syringe SC SCH (09:57)
[2017-03-20 10:01] VITALS: BP 126/70
--- NOTE | 2017-03-20 22:35 | CP.PCM.PN ---
Objective - Vital Signs/Intake and Output Vital Signs (last 24 hours): Temp Pulse Resp BP Pulse Ox 97.5 F L 86 20 126/70 96 03/20/17 08:05 03/20/17 08:05 03/20/17 08:05 03/20/17 09:57 03/20/17 08:05 - Labs Labs: 03/20/17 08:49 03/20/17 08:49 PT 12.1 SECONDS (9.7-12.2) 03/17/17 07:14 INR 1.1 03/17/17 07:14 APTT 38 SECONDS (21-34) H D 03/17/17 07:14
--- NOTE | 2017-03-22 18:53 | CP.PCM.DIS ---
Provider - Provider Date of Admission: 03/16/17 16:46 Attending physician: Melvin Marcial MD Primary care physician: Dr. Masterson Consults: Dr. Squires, general surgery Dr. Schuster, ID Time Spent in preparation of Discharge (in minutes): 35 Hospital Course - Lab Results Lab Results: Micro Results 03/17/17 21:26 Abdomen Gram Stain - Final 03/17/17 21:26 Abdomen Wound Culture - Final Staphylococcus Aureus 03/18/17 Unknown Abdomen Gram Stain - Final 03/18/17 Unknown Abdomen Wound Culture - Final Staphylococcus Aureus Most Recent Lab Values WBC 7.3 K/uL (4.8-10.8) 03/20/17 08:49 RBC 4.44 Mil/uL (4.40-5.90) 03/20/17 08:49 Hgb 13.2 g/dL (12.0-18.0) 03/20/17 08:49 Hct 40.6 % (35.0-51.0) 03/20/17 08:49 MCV 91.4 fL (80.0-94.0) 03/20/17 08:49 MCH 29.7 pg (27.0-31.0) 03/20/17 08:49 MCHC 32.5 g/dL (33.0-37.0) L 03/20/17 08:49 RDW 15.3 % (11.5-14.5) H 03/20/17 08:49 Plt Count 373 K/uL (130-400) 03/20/17 08:49 MPV 8.1 fL (7.2-11.7) 03/20/17 08:49 Neut % (Auto) 64.0 % (50.0-75.0) 03/20/17 08:49 Lymph % (Auto) 19.0 % (20.0-40.0) L 03/20/17 08:49 Rusk % (Auto) 10.5 % (0.0-10.0) H 03/20/17 08:49 Eos % (Auto) 5.5 % (0.0-4.0) H 03/20/17 08:49 Baso % (Auto) 1.0 % (0.0-2.0) 03/20/17 08:49 Neut # 4.6 K/uL (1.8-7.0) 03/20/17 08:49 Lymph # 1.4 K/uL (1.0-4.3) 03/20/17 08:49 Rusk # 0.8 K/uL (0.0-0.8) 03/20/17 08:49 Eos # 0.4 K/uL (0.0-0.7) 03/20/17 08:49 Baso # 0.1 K/uL (0.0-0.2) 03/20/17 08:49 Neutrophils % (Manual) 89 % (50-75) H 03/18/17 07:03 Lymphocytes % (Manual) 6 % (20-40) L 03/18/17 07:03 Monocytes % (Manual) 5 % (0-10) 03/18/17 07:03 Platelet Estimate Normal (NORMAL) 03/18/17 07:03 RBC Morphology Normal 03/18/17 07:03 PT 12.1 SECONDS (9.7-12.2) 03/17/17 07:14 INR 1.1 03/17/17 07:14 APTT 38 SECONDS (21-34) H D 03/17/17 07:14 Sodium 139 mmol/L (132-148) 03/20/17 08:49 Potassium 4.3 mmol/L (3.6-5.2) 03/20/17 08:49 Chloride 94 mmol/L (98-107) L 03/20/17 08:49 Carbon Dioxide 35 mmol/L (22-30) H 03/20/17 08:49 Anion Gap 14 (10-20) 03/20/17 08:49 BUN 10 mg/dL (9-20) 03/20/17 08:49 Creatinine 0.9 MG/DL (0.8-1.5) 03/20/17 08:49 Est GFR ( Amer) > 60 03/20/17 08:49 Est GFR (Non-Af Amer) > 60 03/20/17 08:49 POC Glucose (mg/dL) 118 mg/dL (65-110) H 03/20/17 12:59 Random Glucose 103 mg/dL (75-110) 03/20/17 08:49 Hemoglobin A1c 7.1 % (4.2-6.5) H 03/18/17 07:03 Calcium 9.7 mg/dl (8.6-10.4) 03/20/17 08:49 Phosphorus 4.9 mg/dL (2.5-4.5) H 03/19/17 07:54 Magnesium 1.8 mg/dL (1.6-2.3) 03/19/17 07:54 Total Bilirubin 0.7 mg/dL (0.2-1.3) 03/20/17 08:49 AST 175 U/L (17-59) H D 03/20/17 08:49 ALT 204 U/L (21-72) H D 03/20/17 08:49 Alkaline Phosphatase 55 U/L (38-126) 03/20/17 08:49 Total Protein 8.1 g/dL (6.3-8.3) 03/20/17 08:49 Albumin 4.3 g/dL (3.5-5.0) 03/20/17 08:49 Globulin 3.8 gm/dL (2.2-3.9) 03/20/17 08:49 Albumin/Globulin Ratio 1.1 (1.0-2.1) 03/20/17 08:49 Triglycerides 83 mg/dL (0-149) 03/18/17 07:03 Cholesterol 159 mg/dL (0-199) 03/18/17 07:03 LDL Cholesterol Direct 118 mg/dL (0-129) 03/18/17 07:03 HDL Cholesterol 34 mg/dL (30-70) 03/18/17 07:03 Free T4 0.94 ng/dL (0.78-2.19) 03/18/17 07:03 TSH 3rd Generation 0.46 mIU/L (0.46-4.68) 03/18/17 07:03 Urine Color Straw (YELLOW) 03/16/17 13:35 Urine Clarity Clear (Clear) 03/16/17 13:35 Urine pH 6.0 (5.0-8.0) 03/16/17 13:35 Ur Specific Corrigan 1.004 (1.003-1.030) 03/16/17 13:35 Urine Protein Negative mg/dL (NEGATIVE) 03/16/17 13:35 Urine Glucose (UA) Normal mg/dL (Normal) 03/16/17 13:35 Urine Ketones Negative mg/dL (NEGATIVE) 03/16/17 13:35 Urine Blood Negative (NEGATIVE) 03/16/17 13:35 Urine Nitrate Negative (NEGATIVE) 03/16/17 13:35 Urine Bilirubin Negative (NEGATIVE) 03/16/17 13:35 Urine Urobilinogen Normal mg/dL (0.2-1.0) 03/16/17 13:35 Ur Leukocyte Esterase Neg Raiza/uL (Negative) 03/16/17 13:35 Urine WBC (Auto) < 1 /hpf (0-5) 03/16/17 13:35 Blood Type A POSITIVE 03/16/17 12:00 Antibody Screen Negative 03/16/17 12:00 - Hospital Course Hospital Course: Upon hospital admission: This 47 year old male with PMHx Asthma, Colonic Polyps , HTN, Peripheral Edema - presents to the ED s/p ventral hernia repair on with Dr. Squires. Patient is c/o increasing swelling, pain and drainage from the wound. He reports having his angel removed in office roughly 2 weeks after the procedure and feeling well at that time. Roughly 1 week ago, he reports to have developed leakage of fluid from the hernia site, progressing to what he believes is "puss." He admits that the redness and tenderness at the site of his incision is also worst over the past week. Patient reports he was seen by his PMD (Dr. Masterson) for worsening symptoms, who sent the patient to ED for further evaluation. Patient denies f/c, change in vision, chest pain, SOB, nausea, vomiting, dysuria, incontinence, weakness or numbness. PMD: Dr. Masterson PMHx: Asthma (previously hospitalized), Colonic Polyps, HTN, Peripheral Edema PSHx: Ventral Hernia repair, Fracture of L arm with hardware placed. Meds: See EMR FamHx: unknown SocHx: 5cig/day for many years, ETOH social, denies drug use. On disability from work. During hospital course, the patient was evaluated and treated for the following : [1] Cellulitis / Abscess at Ventral Hernia Repair Site. Patient came in s/p ventral hernia repair on 02/01/[address] Squires. Wound culture grew (+) s. aureus and on 03/17 Dr. Squires performed an I&D of the abdominal wall abscess. Patient was treated with Percocet 5/325 mg PO Q4H for pain and Cefazolin 1Gm IVPB Q8H for infection. Infectious disease consult was placed to Dr. Schuster. Pathology showed fragments fibroadipose tissue with acute and chronic inflammation, fat necrosis and fibrosis. CT Abdomen showed cellulitis about the umbilicus with involvement of the subcutaneous fat about the emboli. [2] HTN for which patient was tx with his home medications Nitroglycerin 0.4mg SL PRN and Lisinopril 40mg PO qd; Held Furosemide 20mg PO qd; Held ASA 81mg PO qd. [3 ] CAD tx with Plavix 75mg PO qd, lipid panel WNL, A1c 7.1, TSH + fee T4 WNL. [4 ] Diabetes tx with home metformin 500mg BID. The patient quickly recovered and was deemed stable for home discharge. Upon hospital discharge, the patient was provided with the following instructions: You are stable for discharge per Dr. Squires and Dr. Marcial. Please follow up with Dr. squires and Dr. Masterson within 1 week of discharge. A visitng nurse will be arranged and will come for dressing changes on the abdominal surgical site. Please take the antibiotic Duricef 500mg PO twice daily for the next ten days. Please seek emergency treatment if you experience persistent fever, vomiting, nausea, and abdominal pain not relieve by pain medications. Instructions discussed with patient who understood and agreed. This is a summary of the patient's hospital admission, see chart for comprehensive detail. - Date & Time of H&P Date of H&P: 03/17/17 Time of H&P: 07:48 Discharge Exam - Additional Findings Additional findings: - Constitutional Appears: Non-toxic, No Acute Distress - Head Exam Head Exam: ATRAUMATIC, NORMOCEPHALIC - Eye Exam Eye Exam: EOMI (right eye) - ENT Exam ENT Exam: Mucous Membranes Moist - Respiratory Exam Respiratory Exam: Decreased Breath Sounds (improving), Clear to Ausculation Bilateral. absent: Wheezes - Cardiovascular Exam Cardiovascular Exam: +S1, +S2 - GI/Abdominal Exam GI & Abdominal Exam: Soft, Tenderness (around surgical site), Normal Bowel Sounds Additional comments: - surgical site dressed with clean abdominal pads, CDI - Extremities Exam Extremities Exam: Normal Inspection. absent: Pedal Edema - Neurological Exam Neurological Exam: Alert, Awake - Psychiatric Exam Psychiatric exam: Normal Affect, Normal Mood - Skin Skin Exam: Warm, Dry Discharge Plan - Discharge Medications Prescriptions: Cefadroxil [Duricef] 500 mg PO BID #20 cap - Follow Up Plan Condition: GOOD Disposition: HOME/ ROUTINE Instructions: Cellulitis (DC), Cellulitis (GEN), Pain Management After Surgery (DC), Pain Management After Surgery (GEN), Surgical Site Infections (DC), Surgical Site Infections (GEN), Incision and Drainage (DC) Additional Instructions: follow up appt with dr squires in [address] masterson . visitng nurse will be arranged and will comine for dressing change on the abdominal surgical site . please seek emergency treatment if with persistent fever , vomiting , nausea and abdominal pain not relieve by pain medications . Referrals: Giselle Masterson MD [Staff Provider] - Lio Squires MD [Staff Provider] -
--- NOTE | 2017-04-08 05:07 | OP ---
DATE: 03/18/2017 PROCEDURE: Re-drainage, debridement, partial closure of abdominal wall abscess. SURGEON: Dr. Squires ANESTHESIA: General. BLOOD LOSS: 30 mL. POSTOPERATIVE CONDITION: Stable. INDICATIONS FOR SURGERY: This is a 47-year-old male who presents with a history of having an abdominal wall abscess. He underwent an I and D yesterday and left him with an large open wound which was packed with a deep packing, taken to the OR for change of the packing under anesthesia for debridement and treatment. PROCEDURE: The patient was taken to the operating room, general anesthesia administered and the abdomen was prepped and draped after the packing was removed. The abdominal wall was aggressively debrided, any remaining abdominal abscess collections were drained and cultured. Bleeding was controlled using the Bovie and larger blood vessels were repaired. The wound was then pulse irrigated with saline in *------*01:38 solution and *------*01:40 tissue flaps were raised and partial tissue transfer closure was performed. The central portion of the wound was packed with saline gauze. The patient tolerated the procedure well and returned to recovery room in stable condition. DATE OF THIS PROCEDURE: 03/17/2017 PREOPERATIVE DIAGNOSIS: Abdominal wound infection with abscess and necrosis. POSTOPERATIVE DIAGNOSIS: Abdominal wound infection with abscess and necrosis. PROCEDURE PERFORMED: Debridement of abdominal necrosis with drainage of abdominal abscess, debridementand partial tissue transfer closure. SURGEON: Dr. Squires. ANESTHESIA: General. BLOOD LOSS: 30 mL. POSTOPERATIVE CONDITION: Stable. INDICATIONS FOR SURGERY: This is a 47-year-old male, almost 4 weeks status post repair of ventral hernia, now has developed a wound necrosis. He did not have mesh placed at the time of the surgery. So a mesh infection is unlikely. He was taken to the operating room for debridement and drainage. PROCEDURE: The patient was taken to the operating room, general anesthesia administered and the abdomen was prepped and draped. The abdominal wall was aggressively debrided and abdominal abscess was drained and cultured. Bleeding was controlled using the Bovie, abdominal wall blood vessels which were bleeding were repaired and the wound was irrigated with copious amount of saline solution and pulse irrigated. Partial tissue transfer closure was performed at the periphery. Central portion of the wound was packed with wet saline gauze. The patient tolerated the procedure well and returned to recovery room in stable condition. Lio Squires MD
--- NOTE | 2017-04-10 02:02 | HP ---
HISTORY OF PRESENT ILLNESS: Patient has chief complaint of weakness, fatigue, and tiredness. The patient came to the hospital, advised admission. PHYSICAL EXAMINATION: GENERAL: The patient is awake, alert and oriented. VITAL SIGNS: Temperature 98 and pulse 90. HEENT: Within normal limits. NECK: Supple. CHEST: Symmetrical. HEART: Regular. ABDOMEN: Soft. EXTREMITIES: No edema. IMPRESSION AND PLAN: The patient had supportive care. *------*. Giselle Masterson MD
--- NOTE | 2017-04-21 15:49 | OP ---
PROCEDURE DATE: 03/17/2017 PREOPERATIVE DIAGNOSIS: Abdominal abscess. POSTOPERATIVE DIAGNOSIS: Abdominal abscess. PROCEDURE: Incision and drainage and debridement of abdominal abscess with partial tissue transfer closure. SURGEON: Lio Squires MD TYPE OF ANESTHESIA: General. ESTIMATED BLOOD LOSS: 20 mL. POSTOPERATIVE CONDITION: Stable. INDICATIONS FOR SURGERY: This is a 47-year-old male, status post ventral hernia repair presents with a skin wound, dehiscence with infection and for operative management. DESCRIPTION OF PROCEDURE: The patient was taken to the operating room and general was administered and abdomen was prepped and draped. The abdomen was reopened and any collection we are trying to culture it was aggressively debridement. Bleeding was controlled using the Bovie. Abdominal wall blood vessels, larger ones were repaired and the wound was irrigated with saline. Wound is partially closed via tissue transfer closure. The central portion wound was packed up in wet saline gauze. The patient tolerated the procedure well and returned to recovery room in stable condition. Lio Squires MD
== END 2017-03-20 14:45 | disposition home or self-care (01) | DRG 899 ==
LOC: C.ER 11:10 → C.9E 16:46 → C.5T 21:07
PROVIDERS: ADMIT Internal Medicine Pulmonary Disease; ATTEND Internal Medicine
PROC: 0HD7XZZ Extraction of Abdomen Skin, External Approach (ICD-10-PCS; 2017-03-17)
PROC: 0W9F0ZZ Drainage of Abdominal Wall, Open Approach (ICD-10-PCS; 2017-03-18)
PROC: 0HD7XZZ Extraction of Abdomen Skin, External Approach (ICD-10-PCS; principal; 2017-03-18 12:30)
DX: T81.4XXA Infection following a procedure, initial encounter (principal); L02.211 Cutaneous abscess of abdominal wall; I11.9 Hypertensive heart disease without heart failure; L03.311 Cellulitis of abdominal wall; I25.10 Atherosclerotic heart disease of native coronary artery without angina pectoris; J45.909 Unspecified asthma, uncomplicated; E11.9 Type 2 diabetes mellitus without complications

== ENCOUNTER 2018-08-18 15:19 | Observation (INO) | payer MEDICAID ==
[2018-08-18 15:25] VITALS: BMI 35.5
[2018-08-18] MEDS ORDERED: DiphenhydrAMINE 50 mg/ml Inj IVP STA ×2 (15:30→22:39)
--- NOTE | 2018-08-18 15:33 | C.PDOC ---
History Of Present Illness Patient BIBA for left sided sharp, nonradiating chest pain since this morning. PMHx of HTN, DM II, CAD, prior [place]. He denies SOB, palpitations, cough, fever. Patient given ASA 324mg and SL nitro in the field. Time Seen by Provider: 08/18/18 15:27 Chief Complaint (Nursing): Chest Pain History Per: Patient, EMS History/Exam Limitations: no limitations Onset/Duration Of Symptoms: Hrs Current Symptoms Are (Timing): Still Present Severity: Moderate Past Medical History Reviewed: Historical Data, Nursing Documentation, Vital Signs Vital Signs: Last Vital Signs Temp 98.6 F 08/18/18 15:24 Pulse 102 H 08/18/18 15:24 Resp 20 08/18/18 15:24 BP 175/91 H 08/18/18 15:24 Pulse Ox 97 08/18/18 15:24 - Medical History PMH: Asthma (HOSPITALIZED-LAST TIME "A LONG TIME AGO"), Colonic Polyps, HTN, Hyperlipidemia, Peripheral Edema - [facility] Procedures DRAINAGE OF ABDOMINAL WALL, OPEN APPROACH (03/16/17) EXTRACTION OF ABDOMEN SKIN, EXTERNAL APPROACH (03/16/17) REPAIR ABDOMINAL WALL, OPEN APPROACH (02/01/17) Family History: States: No Known Family Hx - Social History Hx Alcohol Use: Yes Hx Substance Use: No - Immunization History Hx Tetanus Toxoid Vaccination: No Hx Influenza Vaccination: Yes (2016) Hx Pneumococcal Vaccination: Yes (01/2017) Review Of Systems Constitutional: Negative for: Fever, Chills Cardiovascular: Positive for: Chest Pain. Negative for: Palpitations Respiratory: Negative for: Cough, Shortness of Breath Gastrointestinal: Negative for: Nausea, Vomiting, Abdominal Pain, Diarrhea Genitourinary: Negative for: Dysuria, Hematuria Skin: Negative for: Rash Physical Exam - Physical Exam Appears: Well, Non-toxic, No Acute Distress Skin: Normal Color, Warm, Dry Oral Mucosa: Moist Cardiovascular: Rhythm Regular (mildly tachycardic ) Respiratory: Normal Breath Sounds, No Rales, No Rhonchi, No Wheezing Gastrointestinal/Abdominal: Normal Exam, Bowel Sounds, Soft, No Tenderness Extremity: Normal ROM, No Pedal Edema Neurological/Psych: Oriented x3 ED Course And Treatment - Laboratory Results Result Diagrams: 08/19/18 05:31 08/19/18 05:31 ECG: Interpreted By Me, Viewed By Me (NSR 99bpm, normal axis, ST elevations V2- V4 with recipirocal changes in II, III, aVF, V6) ECG Interpretation: Abnormal O2 Sat by Pulse Oximetry: 97 (RA) Pulse Ox Interpretation: Normal Progress Note: Code heart called. IV heparin and PO Brilinta give, + IV solumedrol and IV benadryl (due to IV allergy). Patient admitted, to go for cardiac catheterization. - Physician Consult Information Physician Contacted: Fred Crandall Outcome Of Conversation: Discussed patient with code heart drosser Dr. Crandall, agrees with activation of Code heart. Disposition - Disposition Disposition: HOSPITALIZED Disposition Time: 15:28 Condition: STABLE - Clinical Impression Clinical Impression: STEMI (ST elevation myocardial infarction), Chest pain Decision To Admit - Pt Status Changed To: Hospital Disposition Of: Inpatient - Admit Certification Admit to Inpatient:: After my assessment, the patient will require hospitalization for at least two midnights. This is because of the severity of symptoms shown, intensity of services needed, and/or the medical risk in this patient being treated as an outpatient. - InPatient: Physician Admission Certification: I certify that this patient requires 2 or more midnights of care for the following reason:: see notes - . Bed Request Type: ICU Admitting Physician: Fred Crandall Patient Diagnosis: Chest pain, STEMI (ST elevation myocardial infarction)
[2018-08-18 15:34] LABS: BASO % 0.3 % (0.0-2.0); EOS # 0.2 K/uL (0.0-0.7); LYMPH % 29.7 % (20.0-40.0); MEAN CORPUSCULAR HEMOGLOBIN 31.3 pg (27.0-31.0); MEAN PLATELET VOLUME 7.7 fL (7.2-11.7); MONO # 0.8 K/uL (0.0-0.8); MONO % 11.8 % (0.0-10.0); NEUT # 3.7 K/uL (1.8-7.0); NEUT % 55.2 % (50.0-75.0); RBC 4.48 Mil/uL (4.40-5.90); RED CELL DISTRIBUTION WIDTH 13.7 % (11.5-14.5); WHITE BLOOD COUNT 6.7 K/uL (4.8-10.8)
[2018-08-18] MEDS ORDERED: DiphenhydrAMINE 50 mg/ml Inj ONE (15:34)
[2018-08-18 15:37] LABS: MEAN CELL VOLUME 89.4 fL (80.0-94.0)
--- NOTE | 2018-08-18 15:38 | CP.PCM.PN ---
<Poli Valenzuela - Last Filed: 08/18/18 15:35> Subjective - Date & Time of Evaluation Date of Evaluation: 08/18/18 Time of Evaluation: 15:35 - Subjective Subjective: CODE HEART PT IN ROUTE TO ED pT IS A 48 YO MALE COMES IN FOR CP SHOWN ON EKG TO HAVE ANTERIOR LEADS STEMI PT TRANSFERED TO MANAGER BEHAVIOR DR LANCE SAHAYEJessica PT GIVEN HEPARIN, PLAVIX, SOLUMEDROL, BENADRYL PT GOT ASA AND NITRO EN ROUTE Objective - Vital Signs/Intake and Output Vital Signs (last 24 hours): Temp Pulse Resp BP Pulse Ox 98.6 F 102 H 20 175/91 H 97 08/18/18 15:24 08/18/18 15:24 08/18/18 15:24 08/18/18 15:24 08/18/18 15:33 - Constitutional Appears: In Acute Distress - Respiratory Exam Respiratory Exam: absent: Chest Wall Tenderness - Cardiovascular Exam Cardiovascular Exam: Tachycardia - GI/Abdominal Exam GI & Abdominal Exam: absent: Guarding, Tenderness - Extremities Exam Extremities Exam: absent: Pedal Edema, Tenderness - Neurological Exam Neurological Exam: Alert, Awake, Oriented x3 - Psychiatric Exam Psychiatric exam: Anxious - Skin Skin Exam: Diaphoretic Assessment and Plan - Assessment and Plan (Free Text) Assessment: TAKE TO MANAGER BEHAVIOR Harris LUCAS <Praveen Pendleton - Last Filed: 08/18/18 16:05> Objective - Vital Signs/Intake and Output Vital Signs (last 24 hours): Temp Pulse Resp BP Pulse Ox 98.6 F 102 H 20 175/91 H 97 08/18/18 15:24 08/18/18 15:24 08/18/18 15:24 08/18/18 15:24 08/18/18 15:35 - Labs Labs: 08/18/18 15:30 08/18/18 15:30 PT 12.2 SECONDS (9.7-12.2) 08/18/18 15:30 INR 1.1 08/18/18 15:30 APTT 36 SECONDS (21-34) H 08/18/18 15:30 Attending/Attestation - Attestation Notes (Text): 08/18/18 16:02 Medical Hospitalist: Patient was brought to the ER and before the cardiac cath had administration of solumedrol and benadryl due to history of seafood allergy. Patient is currently at the cardiac laboratory courier Praveen Pendleton
[2018-08-18 15:42] LABS: INR 1.1; PROTHROMBIN TIME 12.2 SECONDS (9.7-12.2)
[2018-08-18] MEDS ORDERED: Midazolam 2 MG/2 ML VIAL ONE (15:46)
[2018-08-18 15:49] LABS: ALB/GLOB RATIO 1.4 (1.0-2.1); ALBUMIN 4.4 g/dL (3.5-5.0); ALT/SGPT 30 U/L (21-72); AST/SGOT 32 U/L (17-59); BLOOD UREA NITROGEN 17 mg/dL (9-20); CALCIUM 9.4 mg/dl (8.6-10.4); GFR NON-AFRICAN AMERICAN > 60
[2018-08-18 16:01] LABS: CK-MB 3.54 ng/mL (0.0-3.38)
[2018-08-18] MEDS ORDERED: Iodixanol 320 MG/ML 200 ML BOTTLE IV ONE (16:10)
[2018-08-18] MEDS ORDERED: Nitroglycerin 50mg in D5W 50 MG/250 ML BOTTLE IV ONE (16:29)
[2018-08-18] MEDS ORDERED: Nitroglycerin 50mg in D5W 50 MG/250 ML BOTTLE IV SCH (17:00)
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
[2018-08-18 20:04] LABS: CK-MB 3.12 ng/mL (0.0-3.38); TROPONIN I 0.015 ng/mL (0.00-0.120)
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
[2018-08-18] MEDS ORDERED: Iodixanol 320 MG/ML 100 ML BOTTLE IV ONE (22:59)
[2018-08-19 01:18] LABS: BARBITURATES, UR NEGATIVE (NEGATIVE); PHENCYCLIDINE, UR NEGATIVE (NEGATIVE)
[2018-08-19 01:19] LABS: CK-MB 2.71 ng/mL (0.0-3.38); TROPONIN I 0.013 ng/mL (0.00-0.120)
[2018-08-19 01:27] LABS: BENZODIAZEPINES, UR POSITIVE (NEGATIVE); OPIATES, UR POSITIVE (NEGATIVE)
[2018-08-19] MEDS: Sodium Chloride 0.45% 1,000 ML IV SCH ×2 (05:15→08:00)
[2018-08-19 05:43] LABS: BASO % 0.3 % (0.0-2.0); HEMOGLOBIN 12.4 g/dL (12.0-18.0); LYMPH # 0.6 K/uL (1.0-4.3); LYMPH % 6.1 % (20.0-40.0); MEAN CELL VOLUME 90.2 fL (80.0-94.0); MEAN CORPUSCULAR HEMOGLOBIN 31.4 pg (27.0-31.0); MEAN CORPUSCULAR HGB CONC 34.8 g/dL (33.0-37.0); MEAN PLATELET VOLUME 8.2 fL (7.2-11.7); MONO # 0.1 K/uL (0.0-0.8); MONO % 0.9 % (0.0-10.0); NEUT % 92.7 % (50.0-75.0); PLATELET COUNT 281 K/uL (130-400); RBC 3.94 Mil/uL (4.40-5.90); RED CELL DISTRIBUTION WIDTH 13.9 % (11.5-14.5); WHITE BLOOD COUNT 9.7 K/uL (4.8-10.8)
[2018-08-19 06:08] LABS: CK-MB 2.48 ng/mL (0.0-3.38)
[2018-08-19 06:09] LABS: ALB/GLOB RATIO 1.4 (1.0-2.1); ALBUMIN 4.2 g/dL (3.5-5.0); ALT/SGPT 23 U/L (21-72); AST/SGOT 24 U/L (17-59); BLOOD UREA NITROGEN 16 mg/dL (9-20); CALCIUM 9.4 mg/dl (8.6-10.4); GFR NON-AFRICAN AMERICAN > 60
[2018-08-19 08:26] VITALS: TEMP 97.5
[2018-08-19 08:45] LABS: BANDS 3 % (0-2); LYMPHOCYTE 3 % (20-40); NEUTROPHIL 94 % (50-75); TOTAL CELLS COUNTED 100
[2018-08-19 08:46] LABS: PLATELET ESTIMATE NORMAL (NORMAL)
[2018-08-19] MEDS ORDERED: Enoxaparin 40 mg Syringe SC SCH (10:00)
--- NOTE | 2018-08-19 10:09 | CT ---
PROCEDURE: CT Angiography Chest, Abdomen and Pelvis with and without intravenous contrast HISTORY: r/o dissection, PE COMPARISON: Dolly a is made with the previous CT of the abdomen and pelvis dated 03/16/2017 TECHNIQUE: Contiguous axial images of the chest, abdomen and pelvis were obtained in the phase of aortic enhancement. A noncontrast enhanced CT of the chest was also obtained to evaluate for possible intramural thrombus. Coronal and sagittal reformats were generated. IV dose administered: 100 mL of Visipaque 320 intravenously. Radiation dose: Total exam DLP = 2298.71 mGy-cm. This CT exam was performed using one or more of the following dose reduction techniques: Automated exposure control, adjustment of the mA and/or kV according to patient size, and/or use of iterative reconstruction technique. FINDINGS: CT ANGIOGRAPHY OF THE CHEST WITH & WITHOUT CONTRAST: AORTA (CHEST AND ABDOMEN): The thoracic and abdominal aorta are unremarkable, without aneurysm, dissection or rupture. No intramural thrombus identified in the thoracic aorta on the non-contrast ct of the chest. The celiac axis, superior mesenteric artery, inferior mesenteric artery and the renal arteries are widely patent. The pelvic arteries are unremarkable. LUNGS: No evidence of pneumonia or suspicious mass in the lungs. Small opacities at the lung bases likely atelectasis. MEDIASTINUM: Unremarkable. Normal caliber aorta and pulmonary arterial trunk. No aortic dissection. Normal size heart. There is mild diffuse esophageal mucosal thickening noted. LYMPH NODES: Unremarkable. PLEURA: Unremarkable. No pneumothorax. No pleural fluid. BONES: Unremarkable. OTHER FINDINGS: None. CT ANGIOGRAPHY OF THE ABDOMEN AND PELVIS WITH CONTRAST: LIVER: Mild hepatomegaly with findings suggestive of [id number] hepatic steatosis. GALLBLADDER AND BILE DUCTS: There is contracted. No evidence of acute cholecystitis. PANCREAS: Unremarkable. No gross lesion or ductal dilatation. SPLEEN: Unremarkable. ADRENALS: Unremarkable. No mass. KIDNEYS AND URETERS: Unremarkable. No hydronephrosis. No solid mass. VASCULATURE: Unremarkable. No aortic aneurysm. No aortic atherosclerotic calcification or mural plaque present. STOMACH AND BOWEL: The stomach is mildly distended contains fluid and food debris . No obstruction. No gross mural thickening. Colonic diverticulosis are noted without evidence of diverticulitis. APPENDIX: Normal appendix. PERITONEUM: Mild stranding noted at the mesenteric root region. No free fluid. No free air. LYMPH NODES: Mildly enlarged mesenteric lymph nodes seen at mesenteric root region in the mid abdomen. BLADDER: Unremarkable. REPRODUCTIVE: The prostate is mildly enlarged. BONES: No acute fracture. OTHER FINDINGS: There is a small fat containing right inguinal hernia noted. There is subcutaneous fat stranding noted at the right groin associated with prominent lymph nodes of uncertain etiology. IMPRESSION: No evidence of aortic dissection. No evidence of pulmonary embolus. Additional findings as discussed above. Preliminary report was submitted by [facility] Radiology contains concordant findings.
--- NOTE | 2018-08-19 11:28 | CP.PCM.PN ---
<Socorro Avila - Last Filed: 08/19/18 13:21> Subjective - Date & Time of Evaluation Date of Evaluation: 08/19/18 Time of Evaluation: 11:24 - Subjective Subjective: Cardiology Follow Up Patient seen and examined at bedside. Patient denies any chest pain, shortness of breath, or palpitations. Objective - Vital Signs/Intake and Output Vital Signs (last 24 hours): Temp Pulse Resp BP Pulse Ox 97.5 F L 96 H 14 150/78 94 L 08/19/18 08:00 08/19/18 11:00 08/19/18 11:00 08/19/18 10:47 08/19/18 11:00 Intake and Output: 08/19/18 08/19/18 06:59 18:59 Intake Total 1663 419.0 Output Total 925 350 Balance 738 69.0 - Medications Medications: Current Medications Enoxaparin Sodium (Lovenox) 40 mg SC DAILY [facility] Last Admin: 08/19/18 09:32 Dose: 40 mg Sodium Chloride (Sodium Chloride 0.45%) 1,000 mls @ 80 mls/hr IV .[id number] [facility] Last Admin: 08/19/18 08:00 Dose: 80 mls/hr Nitroglycerin/Dextrose (Nitroglycerin 50 Mg/250 Ml D5w) 50 mg in 250 mls @ 3 mls/hr IV .Q24H [facility]; Protocol Last Titration: 08/19/18 05:00 Dose: 20 mcg/min, 6 mls/hr Losartan Potassium (Cozaar) 25 mg PO DAILY [facility] Last Admin: 08/19/18 09:33 Dose: 25 mg Metoprolol Tartrate (Lopressor) 25 mg PO BID [facility] Last Admin: 08/19/18 09:32 Dose: 25 mg Pantoprazole Sodium (Protonix Inj) 40 mg IVP DAILY [facility] Last Admin: 08/19/18 09:32 Dose: 40 mg - Labs Labs: 08/19/18 05:31 08/19/18 05:31 PT 12.2 SECONDS (9.7-12.2) 08/18/18 15:30 INR 1.1 08/18/18 15:30 APTT 36 SECONDS (21-34) H 08/18/18 15:30 - Constitutional Appears: No Acute Distress - Head Exam Head Exam: NORMAL INSPECTION, NORMOCEPHALIC - Eye Exam Eye Exam: EOMI, Normal appearance, PERRL Pupil Exam: NORMAL ACCOMODATION - ENT Exam ENT Exam: Mucous Membranes Moist - Respiratory Exam Respiratory Exam: Clear to Ausculation Bilateral, NORMAL BREATHING PATTERN. absent: Decreased Breath Sounds - Cardiovascular Exam Cardiovascular Exam: +S1, +S2 - GI/Abdominal Exam GI & Abdominal Exam: Soft, Normal Bowel Sounds - Extremities Exam Extremities Exam: Normal Inspection. absent: Pedal Edema, Tenderness - Neurological Exam Neurological Exam: Alert, Awake, Oriented x3 - Psychiatric Exam Psychiatric exam: Normal Affect, Normal Mood - Skin Skin Exam: Dry, Intact, Normal Color, Warm - Additional Findings Additional findings: - Constitutional Appears: Non-toxic - Head Exam Head Exam: ATRAUMATIC, NORMAL INSPECTION, NORMOCEPHALIC - Eye Exam Eye Exam: EOMI Pupil Exam: PERRL Additional comments: L eye blindness - ENT Exam ENT Exam: Normal Exam - Neck Exam Neck exam: Positive for: Full Rom, Normal Inspection - Respiratory Exam Respiratory Exam: Chest Wall Tenderness, Clear to Auscultation Bilateral, NORMAL BREATHING PATTERN. absent: Accessory Muscle Use, Rales, Rhonchi, Wheezes, Respiratory Distress, Stridor - Cardiovascular Exam Cardiovascular Exam: Tachycardia, +S1, +S2 - GI/Abdominal Exam GI & Abdominal Exam: Normal Bowel Sounds, Soft. absent: Distended, Firm, Guarding, Hernia, Rebound, Rigid, Tenderness - Extremities Exam Extremities exam: Positive for: normal capillary refill, normal inspection, pedal pulses present. Negative for: calf tenderness, joint swelling, pedal edema Additional comments: R groin dressing clean/dry/intact with no signs of bleeding or hematoma noted - Neurological Exam Neurological exam: Alert, Oriented x3 - Psychiatric Exam Psychiatric exam: Normal Affect, Normal Mood - Skin Skin Exam: Dry, Intact, Normal Color, Warm Assessment and Plan - Assessment and Plan (Free Text) Plan: CODE HEART Anterior Wall STEMI - EKG: NSR 99bpm, normal axis, ST elevations V2-V4 with recipirocal changes in II, III, aVF, V6 - S/P Cath: Normal Coronaries and normal EF Management: - Medical management for chest pain - Work up for chest pain etiology Case discussed with Socorro Adrian DO, PGY2 <Fred Crandall - Last Filed: 08/20/18 09:36> Objective - Vital Signs/Intake and Output Vital Signs (last 24 hours): Temp Pulse Resp BP Pulse Ox 97.5 F L 72 18 103/63 100 08/19/18 12:00 08/19/18 13:00 08/19/18 13:00 08/19/18 12:47 08/19/18 12:47 - Labs Labs: 08/19/18 05:31 08/19/18 05:31 PT 12.2 SECONDS (9.7-12.2) 08/18/18 15:30 INR 1.1 08/18/18 15:30 APTT 36 SECONDS (21-34) H 08/18/18 15:30 Assessment and Plan - Assessment and Plan (Free Text) Plan: Patient seen and evaluated personally by me Plan of care d/w the resident and as documented
--- NOTE | 2018-08-19 12:28 | CARD ---
APPROVED REPORT Date of service: 08/18/2018 EKG Measurement Heart [id number] <Conclusion> Normal sinus rhythm Normal ECG
[2018-08-19 13:04] VITALS: BP 103/63; PULSE 72; RESP 18
--- NOTE | 2018-08-19 16:21 | CP.PCM.DIS ---
Provider - Provider Date of Admission: 08/18/18 15:28 Attending physician: Giselle Masterson MD Time Spent in preparation of Discharge (in minutes): 40 Hospital Course - Lab Results Lab Results: Most Recent Lab Values WBC 9.7 K/uL (4.8-10.8) 08/19/18 05:31 RBC 3.94 Mil/uL (4.40-5.90) L 08/19/18 05:31 Hgb 12.4 g/dL (12.0-18.0) 08/19/18 05:31 Hct 35.5 % (35.0-51.0) 08/19/18 05:31 MCV 90.2 fL (80.0-94.0) 08/19/18 05:31 MCH 31.4 pg (27.0-31.0) H 08/19/18 05:31 MCHC 34.8 g/dL (33.0-37.0) 08/19/18 05:31 RDW 13.9 % (11.5-14.5) 08/19/18 05:31 Plt Count 281 K/uL (130-400) 08/19/18 05:31 MPV 8.2 fL (7.2-11.7) 08/19/18 05:31 Neut % (Auto) 92.7 % (50.0-75.0) H 08/19/18 05:31 Lymph % (Auto) 6.1 % (20.0-40.0) L 08/19/18 05:31 [place] % (Auto) 0.9 % (0.0-10.0) 08/19/18 05:31 Eos % (Auto) 0.0 % (0.0-4.0) 08/19/18 05:31 Baso % (Auto) 0.3 % (0.0-2.0) 08/19/18 05:31 Neut # (Auto) 9.0 K/uL (1.8-7.0) H 08/19/18 05:31 Lymph # (Auto) 0.6 K/uL (1.0-4.3) L 08/19/18 05:31 [place] # (Auto) 0.1 K/uL (0.0-0.8) 08/19/18 05:31 Eos # (Auto) 0.0 K/uL (0.0-0.7) 08/19/18 05:31 Baso # (Auto) 0.0 K/uL (0.0-0.2) 08/19/18 05:31 Neutrophils % (Manual) 94 % (50-75) H 08/19/18 05:31 Band Neutrophils % 3 % (0-2) H 08/19/18 05:31 Lymphocytes % (Manual) 3 % (20-40) L 08/19/18 05:31 Monocytes % (Manual) TEST NOT PERFORMED 08/19/18 05:31 Platelet Estimate Normal (NORMAL) 08/19/18 05:31 PT 12.2 SECONDS (9.7-12.2) 08/18/18 15:30 INR 1.1 08/18/18 15:30 APTT 36 SECONDS (21-34) H 08/18/18 15:30 Sodium 138 mmol/L (132-148) 08/19/18 05:31 Potassium 4.0 mmol/L (3.6-5.2) 08/19/18 05:31 Chloride 104 mmol/L (98-107) 08/19/18 05:31 Carbon Dioxide 22 mmol/L (22-30) 08/19/18 05:31 Anion Gap 16 (10-20) 08/19/18 05:31 BUN 16 mg/dL (9-20) 08/19/18 05:31 Creatinine 0.8 mg/dL (0.8-1.5) 08/19/18 05:31 Est GFR ( Amer) > 60 08/19/18 05:31 Est GFR (Non-Af Amer) > 60 08/19/18 05:31 Random Glucose 173 mg/dL (75-110) H 08/19/18 05:31 Hemoglobin A1c 6.5 % (4.2-6.5) 08/19/18 05:31 Calcium 9.4 mg/dl (8.6-10.4) 08/19/18 05:31 Phosphorus 2.8 mg/dL (2.5-4.5) 08/19/18 05:31 Magnesium 1.7 mg/dL (1.6-2.3) 08/19/18 05:31 Total Bilirubin 0.4 mg/dL (0.2-1.3) 08/19/18 05:31 AST 24 U/L (17-59) 08/19/18 05:31 ALT 23 U/L (21-72) 08/19/18 05:31 Alkaline Phosphatase 48 U/L (38-126) 08/19/18 05:31 Total Creatine Kinase 195 U/L (55-170) H 08/19/18 05:31 CK-MB (Mass) 2.48 ng/mL (0.0-3.38) 08/19/18 05:31 Troponin I < 0.0120 ng/mL (0.00-0.120) 08/19/18 05:31 Total Protein 7.1 g/dL (6.3-8.3) 08/19/18 05:31 Albumin 4.2 g/dL (3.5-5.0) 08/19/18 05:31 Globulin 2.9 gm/dL (2.2-3.9) 08/19/18 05:31 Albumin/Globulin Ratio 1.4 (1.0-2.1) 08/19/18 05:31 Urine Opiates Screen Positive (NEGATIVE) H 08/19/18 00:45 Urine Methadone Screen Negative (NEGATIVE) 08/19/18 00:45 Ur Barbiturates Screen Negative (NEGATIVE) 08/19/18 00:45 Ur Phencyclidine Scrn Negative (NEGATIVE) 08/19/18 00:45 Ur Amphetamines Screen Negative (NEGATIVE) 08/19/18 00:45 U Benzodiazepines Scrn Positive (NEGATIVE) 08/19/18 00:45 U Oth Cocaine Metabols Positive (NEGATIVE) H 08/19/18 00:45 U Cannabinoids Screen Negative (NEGATIVE) 08/19/18 00:45 Blood Type A POSITIVE 08/18/18 15:30 Antibody Screen Negative 08/18/18 15:30 - Hospital Course Hospital Course: Patient is a 48 year old male with past medical history of hypertension, diabetes mellitus type II, coronary artery disease, prior NC (per patient, right before Thanksgiving this year) presenting to the ED as a Code Heart with ST segment elevations v2-v4 noted on EKG with reciprocal changes in II, III, aVF, V6. Patient complained of L sided sharp, nonradiating chest pain since this morning. Patient was given aspirin 324 mg and sublingual nitroglycerin en route. In the ED, heparin bolus and PO Brillinta were given. IV solumedrol and benadryl were also given due to history of shellfish allergy, and patient was taken to production laborer. Patient s/p PCI demonstrated normal coronary arteries, normal ejection fraction. Urine toxicology was positive for cocaine and opiates. Patient was transferred to ICU for further monitoring and cardiac workup. The patient declined further medical workup and management in the hospital and wished to leave. This action is against medical advice. The decision was made with informed refusal. The patient was told that remaining in the hospital was necessary until cleared from a cardiac perspective. Explanation of the reasons why were discussed. The risks of leaving were explainted to the patient and include but are not limited to, worsening of known or currently unknown conditions, permanent disability and from undiagnosed or untreated conditions. The patient has the capacity to make this informed decision and understands my explanation of the current medical problem and risks of leaving. The patient voluntarily accepts these risks and signed an AMA form documenting our conversation. The patient was given the opportunity to ask questions and reconsider. The patient was encouraged to return to the ED at any time for further care. The following is a summary of hospital course. For further detail, please refer to EMR. - Date & Time of H&P Date of H&P: 08/19/18 Time of H&P: 16:19 Discharge Exam - Head Exam Head Exam: ATRAUMATIC, NORMAL INSPECTION, NORMOCEPHALIC - Eye Exam Eye Exam: EOMI, Normal appearance, PERRL - ENT Exam ENT Exam: Mucous Membranes Moist, Normal Exam - Neck Exam Neck exam: Full Rom, Normal Inspection - Respiratory Exam Respiratory Exam: Clear to PA & Lateral, NORMAL BREATHING PATTERN, UNREMARKABLE. absent: Accessory Muscle Use, Rales, Rhonchi, Wheezes, Respiratory Distress, Stridor - Cardiovascular Exam Cardiovascular Exam: REGULAR RHYTHM, +S1, +S2 - GI/Abdominal Exam GI & Abdominal Exam: Normal Bowel Sounds, Unremarkable. absent: Distended, Firm, Guarding, Hernia, Rebound, Rigid, Soft, Tenderness - Extremities Exam Extremities exam: full ROM, normal capillary refill, pedal pulses present - Back Exam Back exam: NORMAL INSPECTION - Neurological Exam Neurological exam: Alert, CN II-XII Intact, Normal Gait, Oriented x3 - Psychiatric Exam Psychiatric exam: Normal Affect, Normal Mood - Skin Skin Exam: Dry, Intact, Normal Color, Warm Discharge Plan - Follow Up Plan Condition: GOOD Disposition: AGAINST MEDICAL ADVICE
--- NOTE | 2018-08-22 01:57 | CARDCATH ---
PROCEDURE DATE: 08/18/2018 PROCEDURES: 1. Left heart catheterization. 2. Coronary angiogram. CLINICAL INDICATIONS: 1. Chest pain. 2. Abnormal EKG. 3. Hypertension. 4. Hyperlipidemia. REFERRING PHYSICIAN: Beena Ramos DO PERFORMING PHYSICIAN: Fred Crandall MD BRIEF CLINICAL HISTORY: Sergio Miranda is a 48-year-old gentleman who presented to the [facility] Emergency Room with chest pain. EKG was suggestive of acute ST-elevation anterior myocardial infarction. Code heart was activated and label cutter was opened emergently. DESCRIPTION OF PROCEDURE: After informed consent, the patient was prepped and draped in the usual sterile fashion. A 2% lidocaine was given in the right radial artery. Using micropuncture technique, 6-Japanese sheath was introduced into the right radial artery. However, left heart catheterization could not be completed via transradial route and exchanged to a right groin access. A JL4 6-Japanese diagnostic catheter was engaged into left main coronary artery. Contrast injected and left coronary angiogram was done. Then the catheter was exchanged to a JR4 6-Japanese diagnostic catheter. The catheter was inserted into the left ventricle across the aortic valve. LVEDP was measured. Contrast injected and LV angiogram was done. Then, the catheter was pulled back across the aortic valve. Gradient across the aortic valve was measured. The catheter was engaged into the right coronary artery. Contrast injected and right coronary angiogram was done. The patient tolerated the procedure well. Post procedure, Perclose suture deployed in the right groin with excellent hemostasis. FINDINGS: 1. Left main coronary artery is patent. 2. LAD and diagonal branches are patent. 3. Left circumflex and obtuse marginal branches are patent. 4. Right coronary artery is dominant and patent. IMPRESSION: 1. Normal coronaries. 2. Normal left ventricular systolic function. Recommend medical management. Fred Crandall MD
--- NOTE | 2018-08-22 12:27 | CARD ---
APPROVED REPORT Date of service: 08/19/2018 EXAM: Two-dimensional and M-mode echocardiogram with Doppler and color Doppler. Other Information Quality : GoodRhythm : RISK FACTORS Hypertension 2D DIMENSIONS IVSd1.0 (0.7-1.1cm)LVDd5.0 (3.9-5.9cm) PWd1.3 (0.7-1.1cm)LA Zgfify36 (18-58mL) LVDs2.5 (2.5-4.0cm)FS (%) 50.6 % LVEF (%)81.7 (>50%)LVEF (Davidson's)73.41 % IVC0.00 cm M-Mode DIMENSIONS RVDd1.85 (2.1-3.2cm)Left Atrium (MM)3.44 (2.5-4.0cm) IVSd1.07 (0.7-1.1cm)Aortic Root3.34 (2.2-3.7cm) LVDd4.91 (4.0-5.6cm)Aortic Cusp Exc.2.30 (1.5-2.0cm) PWd1.40 (0.7-1.1cm)FS (%) 42 % LVDs2.83 (2.0-3.8cm)LVEF (%)73 (>50%) Mitral Valve MV E Wjywvwoq30.6cm/sMV A Boyfsvqa26.0cm/s TDI Lateral E' Peak V9.26cm/sMedial E' Peak V8.03cm/s LEFT VENTRICLE The left ventricle is normal size. There is mild concentric left ventricular hypertrophy. Left ventricle systolic function is normal. The Ejection Fraction is >70%. There is normal LV segmental wall motion. The left ventricular diastolic function is normal. There is no ventricular septal defect visualized. RIGHT VENTRICLE The right ventricle is normal size. The right ventricular systolic function is normal. ATRIA The left atrium size is normal. The right atrium size is normal. AORTIC VALVE The aortic valve is tri-cuspid. The aortic valve is normal in structure. No aortic regurgitation is present. There is no aortic valvular stenosis. MITRAL VALVE The mitral valve is normal in structure. There is no evidence of mitral valve prolapse. Mitral regurgitation is trace. TRICUSPID VALVE The tricuspid valve is normal in structure. There is trace tricuspid regurgitation. Right ventricular systolic pressure is estimated at less than 30 mmHg. There is no pulmonary hypertension. PULMONIC VALVE The pulmonic valve is not well visualized. There is no pulmonic valvular regurgitation. GREAT VESSELS The aortic root is normal in size. The ascending aorta is normal in size. The IVC is normal in size and collapses >50% with inspiration. PERICARDIAL EFFUSION There is no pericardial effusion. <Conclusion> There is mild concentric left ventricular hypertrophy. Left ventricle systolic function is normal. The Ejection Fraction is >70%. The left ventricular diastolic function is normal.
[2018-09-04 20:15] VITALS: O2SAT 97
== END 2018-08-19 16:09 | disposition left against medical advice (07) ==
LOC: C.ER 15:19 → INTOOBSV 15:28 → C.9E 15:28 → C.ER 15:34 → C.9I 17:05
PROVIDERS: ADMIT Internal Medicine Pulmonary Disease; ATTEND Internal Medicine Pulmonary Disease
DX: I20.1 Angina pectoris with documented spasm (principal); I16.1 Hypertensive emergency; R94.31 Abnormal electrocardiogram [ECG] [EKG]; I10 Essential (primary) hypertension; J45.909 Unspecified asthma, uncomplicated; E11.9 Type 2 diabetes mellitus without complications; R82.90 Unspecified abnormal findings in urine; E78.5 Hyperlipidemia, unspecified; F17.210 Nicotine dependence, cigarettes, uncomplicated; I25.2 Old myocardial infarction; Z98.61 Coronary angioplasty status; Z86.010 Personal history of colon polyps; Z91.013 Allergy to seafood; Z80.1 Family history of malignant neoplasm of trachea, bronchus and lung; Z82.49 Family history of ischemic heart disease and other diseases of the circulatory system
CPT/HCPCS: 71275; 74175; 80053; 80324; 80345; 80346; 80349; 80353; 80358; 80361; 82553; 83036; 83735; 83992; 84100; 84484; 85025; 85610; 85730; 86850; 86900; 87081; 93005; 93306; 93458; 94770; 96374; 96375; 99152; 99153; 99285; C1760; C1769; C1887; C1893; C9113; G0378; J1200; J1644; J1650; J2250; J2270; J2930; J3010; J7030; Q9966; Q9967